=== PATIENT | male | born 1940 | race Caucasian/White ===

== ENCOUNTER → 2018-04-11 13:27 | Outpatient (CLI) | payer MEDICARE, SELFPAY ==
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
--- NOTE | 2018-04-11 13:30 | RAD_ITS ---
STUDY: SWALLOWING STUDY (MODIFIED ESOPHAGRAM WITH SPEECH THERAPY (COOKIE SWALLOW). REASON FOR EXAM: Male, 77 years old. Dysphagia. Sometimes patient feels food/fluid caught in upper chest region midline. TECHNIQUE: The examination was performed with Speech Pathology in attendance. Under fluoroscopic observation, the patient ingested thin barium, thick barium, barium pudding and barium coated cracker. FLUOROSCOPY TIME: 3:24 minutes/seconds RADIOLOGIST INVOLVEMENT: Radiologist was present and providing direct supervision. COMPARISON: None available. FINDINGS: The following was observed during swallowing of the various mixtures of barium: Thin Barium: There was no finding of aspiration identified. Minimal transient laryngeal penetration. Thick Barium: There was no finding of aspiration or laryngeal penetration. Barium Pudding: There was no finding of aspiration or laryngeal penetration. Barium Coated Cracker: There was no findings of aspiration or laryngeal penetration. Additional imaging of the thoracic esophagus shows barium pooling within the mildly dilated proximal upper thoracic esophagus with severe esophageal dysmotility without tertiary waves identified. Subsequent imaging shows dilatation upper, mid and distal esophagus with distal smooth margin tapering suggesting physiologic delayed emptying possibly due to distal esophageal narrowing or other etiology. RAD/Swallowing Function w/Video IMPRESSION: No fabienne aspiration with tailored barium swallow study. Please see Speech Pathology report same date for additional details. Severe appearing esophageal dysmotility without tertiary waves with delayed transit of the barium in the mildly dilated upper, mid and distal thoracic esophagus. If clinically indicated, esophagram is recommended for further evaluation to identify possible distal esophageal narrowing or other etiology. The swallow study findings were discussed with the patient by the speech pathologist At the conclusion of the examination. Please see speech pathology report for more information and recommendations. The procedure was performed by Durga under the direct supervision of Dr. Yates. Electronically Signed: Andres Yates, at 15:55 EDT Tel , Service support ,
== END ==
PROVIDERS: Family Provider Family Medicine; PCP Family Medicine; Referring Provider Family Medicine; Visit Provider Family Medicine
DX: R13.13 Dysphagia, pharyngeal phase (principal)
CPT/HCPCS: 74230; 92611; G8996; G8997; G8998

== ENCOUNTER 2018-04-25 11:13 | Emergency (ER) | payer MEDICARE, SELFPAY ==
[2018-04-25 11:17] VITALS: BP 166/83; PULSE 59; RESP 16; TEMP 36.6; O2SAT 98; BMI 21.4
--- NOTE | 2018-04-25 11:54 | EKG12_ITS ---
Test Reason : CP Blood Pressure : / mmHG Vent. Rate : 056 BPM Atrial Rate : 056 BPM P-R Int : 156 ms QRS Dur : 088 ms QT Int : 426 ms P-R-T Axes : 035 027 040 degrees QTc Int : 411 ms Sinus bradycardia Otherwise normal ECG Confirmed by VIRAL US ([id number]), editor index GO SALTER ([id number]) on 04/29/2018 8:49:13 AM Referred By: REFUGIO
--- NOTE | 2018-04-25 11:54 | RAD_ITS ---
STUDY: X-RAY CHEST REASON FOR EXAM: Male, 77 years old. Chest pain TECHNIQUE: Single AP portable view of the chest. COMPARISON: None. FINDINGS: The lungs are clear and expanded. There is no demonstrated pleural abnormality. Normal size heart. Normal mediastinum and marita. Normal visualized pulmonary arteries. There is atherosclerotic calcification of the aortic arch with tortuosity. There are diffuse degenerative changes of the visualized thoracic spine. Normal visualized ribs, clavicles, and shoulders. There is no demonstrated abnormality of the visualized soft tissue structures of the upper abdomen. RAD/Chest 1 View (Portable) IMPRESSION: Degenerative changes, as described above. No demonstrated acute cardiopulmonary process. Electronically Signed: Dickson Nair MD at 13:09 EDT , Service support ,
[2018-04-25 12:12] LABS: Absolute Lymphocyte Count 1.48 X10^3/ul (0.83-4.51); Absolute Neutrophil Count 2.1 X10^3/uL (2.0-7.7); Basophil# 0.01 X10^3/uL; Basophil% 0.2 % (0-1); Eosinophil# 0.09 X10^3/uL; Eosinophils% 2.1 % (0-5); Hematocrit 34.5 % (40-54); Hemoglobin 10.8 g/dl (13.0-16.5); Lymphocyte # 1.48 X10^3/ul (4.0); Lymphocyte % 34.7 % (19-41); Mean Corp Hgb Conc 31.3 g/gl (32-36); Mean Corpuscular Hgb 30.5 pg (27.0-32.0); Mean Corpuscular Volume 97.5 fL (80-94); Mean Platelet Vol. 11.3 fl (6.2-12.0); Monocyte# 0.58 X10^3/uL; Monocyte% 13.6 % (0-10); Neutrophil # 2.09 X10^3/uL (2.7-7.7); Neutrophil % 48.9 % (47-70); Platelet Count 143 K/mm3 (150-450); RBC Distribution Width CV 14.8 % (11.6-14.6); RBC Distribution Width SD 49.9 fl (35.1-43.9); Red Blood Count 3.54 M/mm3 (4.6-6.2); White Blood Count 4.3 K/mm3 (4.4-11.0)
[2018-04-25 12:13] LABS: International Normalized Ratio 1.1; Prothrombin Time (Protime)PT. 13.9 SECONDS (11.7-14.9)
[2018-04-25 12:14] LABS: Partial Thromboplast Time 30.1 Seconds (24.1-36.2)
[2018-04-25 12:15] VITALS: BP 162/84; PULSE 52; RESP 19; O2SAT 99
[2018-04-25] MEDS: Aspirin 81 MG TAB.CHEW 324 MG PO (12:24)
[2018-04-25 12:26] LABS: Anion Gap 6 (5-15); BUN 25 mg/dL (7-18); Calcium,Total 9.4 mg/dL (8.5-10.1); Chloride 109 mmol/L (98-107); Creatinine, Serum 1.19 mg/dL (0.70-1.30); EST Glomerular Filtration Rate 63 mL/min (>60); Est Glom Filt Rate - Afr Amer 76 mL/min (>60); Estimated Creatinine Clearance 46.85 ml/min; Glucose 80 mg/dL (74-106); POSITIVE COUNT NO; POSITIVE DIFFERENTIAL NO; POSITIVE MORPHOLOGY NO; Sodium Level 141 mmol/L (136-145)
[2018-04-25 12:40] LABS: D-Dimer Quantitative (DVT/PE) 6.14 FEU/ug/m (0.27-0.49)
--- NOTE | 2018-04-25 12:41 | ED.RN ---
Critical d-dimer of 6.[address] Olmedo notified. No new orders received.
--- NOTE | 2018-04-25 12:50 | CT_ITS ---
STUDY: CTA CHEST REASON FOR EXAM: Male, 77 years old. Chest pain. Abdominal aortic aneurysm repair RADIATION DOSAGE (If Supplied By Facility): CTDIvol = ( 8.59 ) mGy, DLP = ( 216.13 ) mGycm TECHNIQUE: The examination was performed with the intravenous administration of 100 ml of Isovue 370 contrast material. Post-processing of the angiographic images was performed, with multiplanar reformation and 3D reconstruction. Individualized dose optimization techniques were used for this CT. COMPARISON: Chest x-ray FINDINGS: Normal enhancement of the main pulmonary artery and right and left pulmonary arteries. Normal enhancement of the bilateral peripheral pulmonary arteries. There is no demonstrated pulmonary embolism. There is atherosclerotic calcification of the aortic arch with tortuosity. There is no demonstrated aortic dissection. There are calcifications of the coronary arteries. Normal mediastinum. Normal hilar regions. Normal visualized trachea and bronchi. The lungs are well expanded. There is emphysema of the lungs. There is right upper lung granuloma. Normal pleura. Normal chest wall structures. There are degenerative changes of thoracic spine. There are cysts in the liver and right kidney. CT/CTA Chest W/WO Contrast IMPRESSION: CTA chest examination, without a demonstrated pulmonary embolism or arterial dissection. Electronically Signed: Dickson Nair MD at 14:00 EDT , Service support ,
[2018-04-25 13:00] VITALS: BP 161/77; PULSE 57; RESP 19; O2SAT 97
[2018-04-25 15:00] VITALS: BP 177/83; PULSE 56; RESP 27; O2SAT 98
[2018-04-25] MEDS: Mag Hydrox/Al Hydrox/Simeth 30 ML UDC PO (15:13)
--- NOTE | 2018-04-25 15:31 | ED.VISSUMM ---
- ER Visit Summary Date of Service: 04/25/18 Chief Complaint: Chest pain History of Present Illness: The patient is a 77 M who presents with chest pain that began today. Patient states the pain began while he was sleeping. Patient describes the pain is dull and aching. Patient states the pain is over the substernal and lateral parasternal areas. Patient states nothing seems to make the pain better or worse. Patient denies any nausea or vomiting. Patient denies any diaphoresis. Patient denies any shortness of breath. Patient denies any other symptoms. Patient states he has been diagnosed with what sounds like an esophageal stricture and is scheduled to do have an endoscopy this week. Patient states he was eating some meat that he chopped up very finely. Patient states he was able to swallow it without difficulty. However, since that time he has been having some of this intermittent chest pain. Patient also had a recent repair of a abdominal aortic aneurysm approximately 6 weeks ago. Patient denies any abdominal pain. Patient denies any pain in his upper back. Physical Examination: Vital signs are stable. Patient is afebrile. Patient is in no acute distress. Oral mucosa is pink and moist. Neck is supple. There is no JVD noted. Heart was regular rate and rhythm. Lungs are clear and equal bilateral. There is good respiratory effort noted. Abdomen is soft and nontender. Cranial nerves II through XII are intact. There are no focal motor or sensory deficits noted. The remaining physical exam is within normal limits. Test Results: Chest x-ray was obtained. There is no acute cardiopulmonary process. CBC, metabolic profile, troponin were obtained and were all essentially within normal limits. D-dimer was obtained and was elevated. CTA of the chest was obtained. There is no evidence of pulmonary embolism or aortic dissection. Emergency Department Course and Treatment: She was given aspirin and sublingual nitroglycerin initially. On reevaluation patient was having intermittent pain in his chest. Patient was given a GI cocktail. Patient felt better after this. Patient was instructed to follow-up with his primary care physician and follow-up for his endoscopy as scheduled. Patient understood and was agreeable with the plan. All questions were answered. Disposition: Discharge home Impression: Chest pain This note was generated with [employer] dictation software. It may contain incorrect words, spelling, and punctuation that were not noted in review of the chart prior to signing ED Disposition - Plan for ED Patient: Disposition: Home or Assisted Living Chief Complaint: Chest Pain Diagnosis: Chest pain Instructions: ED Chest Pain Atypical Unkn Cause Referrals: Sanjay Espinal MD [Primary Care Provider] -
[2018-04-25 15:55] VITALS: BP 157/86; PULSE 53; RESP 12; O2SAT 53
== END 2018-04-25 15:55 | disposition home or self-care (01) ==
PROVIDERS: Emergency Provider Emergency Medicine; Family Provider Family Medicine; PCP Family Medicine
DX: R07.9 Chest pain, unspecified (principal); M54.9 Dorsalgia, unspecified; R74.8 Abnormal levels of other serum enzymes; I10 Essential (primary) hypertension; Z79.82 Long term (current) use of aspirin; Z79.899 Other long term (current) drug therapy; Z98.890 Other specified postprocedural states
CPT/HCPCS: 71045; 71275; 80048; 84484; 85025; 85379; 85610; 85730; 93005; 99285; Q9967

== ENCOUNTER → 2018-04-28 09:53 | Outpatient (CLI) | payer MEDICARE, SELFPAY ==
--- NOTE | 2018-04-28 09:54 | RAD_ITS ---
STUDY: X-RAY - ESOPHAGUS (BARIUM SWALLOW) WITH FLUOROSCOPY REASON FOR EXAM: Male, 77 years old. Episodes of choking and dysphagia for solids. TECHNIQUE: 15 view(s) of the esophagus were obtained following swallowing of barium. FLUOROSCOPY TIME (if supplied): (0:30) minutes/seconds COMPARISON: None. FINDINGS: There is no demonstrated esophageal foreign body. There is no demonstrated stricture or mucosal abnormality. Normal gastroesophageal junction, without a demonstrated hiatal hernia. The patient ingested a 12 mm tablet of barium. The tablet is trapped at the gastroesophageal junction. There is atherosclerotic tortuosity of the aortic arch and descending thoracic aorta. Normal visualized pulmonary parenchyma. There are diffuse degenerative changes of the visualized thoracic spine. RAD/Esophagus Only IMPRESSION: The patient ingested a 12 mm tablet of barium. The tablet is trapped at the gastroesophageal junction. Electronically Signed: Telly Diaz MD at 15:55 EDT Tel [phone], Service support ,
== END ==
PROVIDERS: Family Provider Family Medicine; PCP Family Medicine; Referring Provider Internal Medicine Cardiovascular Disease; Visit Provider Internal Medicine Cardiovascular Disease
DX: Z98.890 Other specified postprocedural states (principal)
CPT/HCPCS: 74220

== ENCOUNTER → 2018-05-12 13:45 | Outpatient (CLI) | payer MEDICARE, SELFPAY ==
--- NOTE | 2018-05-12 13:45 | ESO_PTH ---
PATIENT: RUSS VAZ LOC: [facility] U#:[id number] AGE/SX: 84/M ROOM: RE05/12/[address]: Dr. Pepe Young MD : [id number] BED: DIS: SPEC #: [id number] RECD: 05/12/18 15:17 STATUS: COLETTE REAnibal #: [id number] JW: 05/12/18 13:[address]: Pepe Young DEPT: SURGICAL PATHOLOGY RECD BY: Durga Kumar ENTERED: 05/13/18 11:03 KI TYPE: BRENDAN MELLO DR: Dr. Sanjay Espinal MD [facility] Tissues: Esophagus, NOS Procedures: Surgery Specimen Level IV HEADER OPERATION: EGD with biopsy PRE-OP DIAGNOSIS: Dysphagia TISSUE SUBMITTED: Esophagus biopsy rule out EE MICROSCOPIC DIAGNOSIS Esophagus, biopsy: Fragments of squamous epithelium with mild chronic inflammation. See Comment. ELENITA:ki 05/14/18 COMMENT Increased number of eosinophils consistent with eosinophilic esophagitis are not seen. MICROSCOPIC DESCRIPTION Slides are reviewed. GROSS DESCRIPTION Received is one container labeled with the patient name and designated esophagus. The specimen consists of multiple irregular fragments of light ferguson soft tissue that in aggregate measure 0.6 x 0.4 x 0.1 cm. The specimen is totally submitted in one cassette. / SJ:sp 05/13/18 TC: 3 [facility]: [id number]
== END ==
PROVIDERS: Family Provider Family Medicine; PCP Family Medicine; Referring Provider Internal Medicine Gastroenterology; Visit Provider Internal Medicine Gastroenterology
DX: R13.10 Dysphagia, unspecified (principal)
CPT/HCPCS: 88305

== ENCOUNTER 2019-10-30 14:45 | Inpatient (IN) | payer MEDICARE, OTHER, SELFPAY ==
[2018-09-16 15:03] VITALS: BMI 23.4
[2019-10-30] VITALS (13 sets, daily range): BP systolic 143–193; BP diastolic 49–83; PULSE 56–68; RESP 16–18; TEMP 36.4–36.7; O2SAT 94–99; BMI 25.4; BMI 24.7
--- NOTE | 2019-10-30 14:55 | EKG12_ITS ---
Test Reason : PALPS Blood Pressure : / mmHG Vent. Rate : 059 BPM Atrial Rate : 059 BPM P-R Int : 158 ms QRS Dur : 090 ms QT Int : 424 ms P-R-T Axes : 001 019 026 degrees QTc Int : 419 ms Sinus bradycardia Otherwise normal ECG No previous ECGs available Confirmed by CHAO BOSE, ALLY ([id number]), editorial director GO SALTER ([id number]) on 11/11/2019 10:28:00 AM Referred By: TODD Confirmed By:ALLY GUIDRY MD
--- NOTE | 2019-10-30 15:15 | RAD_ITS ---
STUDY: X-RAY CHEST REASON FOR EXAM: Male, 79 years old. PALPITATIONS, HX OF A-FIB, DENIES CHEST PAIN, C/O SOB WITH EXERTION FOR A COUPLE OF DAYS. TECHNIQUE: Single AP portable view of the chest. COMPARISON: Comparison is made with prior study April 25, 2018. FINDINGS: EKG electrodes are seen. The lungs are clear and expanded. There is no demonstrated pleural abnormality. Normal size heart. Normal mediastinum and marita. Normal visualized pulmonary arteries. There is atherosclerotic calcification of the aortic arch with tortuosity. There are diffuse degenerative changes of the visualized thoracic spine. Normal visualized ribs, clavicles, and shoulders. There is no demonstrated abnormality of the visualized soft tissue structures of the upper abdomen. RAD/Chest 1 View (Portable) IMPRESSION: No acute abnormality is seen. Electronically Signed: Telly Diaz, at 15:38 EDT , Service support ,
[2019-10-30 15:16] LABS: Absolute Lymphocyte Count 1.39 X10^3/uL (0.83-4.51); Absolute Neutrophil Count 1.5 X10^3/uL (2.0-7.7); Basophil# 0.01 X10^3/uL; Basophil% 0.3 % (0-1); Eosinophil# 0.03 X10^3/uL; Eosinophils% 0.9 % (0-5); Hematocrit 24.4 % (40-54); Lymphocyte # 1.39 X10^3/ul (4.0); Lymphocyte % 40.5 % (19-41); Mean Corp Hgb Conc 28.7 g/dL (32-36); Mean Corpuscular Hgb 26.3 pg (27.0-32.0); Mean Corpuscular Volume 91.7 fL (80-94); Mean Platelet Vol. 10.8 fl (6.2-12.0); Monocyte# 0.48 X10^3/uL; NRBC Flagged by Analyzer 0 % (0-5); Neutrophil # 1.49 X10^3/uL (2.7-7.7); Neutrophil % 43.4 % (47-70); Platelet Count 189 K/mm3 (150-450); RBC Distribution Width CV 18.9 % (11.6-14.6); RBC Distribution Width SD 61.7 fl (35.1-43.9); Red Blood Count 2.66 M/mm3 (4.6-6.2); White Blood Count 3.4 K/mm3 (4.4-11.0)
--- NOTE | 2019-10-30 15:17 | ED.DCSUM_ITS ---
History of Present Illness Chief Complaint: Palpitations Informant: Patient Onset: Days Timing: Intermittent Narrative: Patient is an 79-year-old male with history of ruptured AAA repaired at [facility] complicated by acute kidney injury requiring short-term dialysis, proximal atrial fibrillation, not on any anticoagulation but does take 81 mg aspirin daily, status post ablation who is presenting with palpitations in his chest. Patient states over the past few days has had intermittent episodes where he feels like his cell phone is vibrating in his chest. He states the last anywhere between a couple minutes to a couple hours. He currently does not have any symptoms. When he gets this he also has some radiation of discomfort down his left arm. He does note that he was more short of breath when he went to take the garbage cans inside yesterday which was abnormal for him. Edema of his feet but states that is been stable for the past 2 years. No change in sleep habits. Denies any orthopnea. Denies any associated diaphoresis or nausea. Dates he has had a cardiac catheterization when he had his aneurysm and multiple stress test. He is had multiple episodes of these palpitations in the past. Patient denies any black or bloody stools. He states he does get hemorrhoidal bleeding and blood with wiping for the past 2 years. This is unchanged. Past Medical History - Allergies and Home Meds Allergies/Adverse Reactions: Allergies No Known Allergies Allergy (Verified 03/31/19 12:57) Primary Care Physician: Sanjay Espinal MD [Primary Care Provider] - Past Medical History: - - History of ruptured AAA, proximal atrial fibrillation Surgical History: - - Cardiac ablation, AAA repair, patient underwent appendectomy in the 1970s. He underwent disc fixation of the cervical spine for broken neck at the age of 14. Lives: With Family Smoking Status: Former smoker Alcohol: Occasional - No more than 2 beers a day - Family History Maternal Family History: Family History (Last Reviewed 03/31/19 @ 12:59 by Mandy Ogden) Mother Cancer Family History: Reports: - - Patient's father at the age of 80 with a history of alcoholism, black lung due to many years of call mining. Patient's mother at the age of 89 with a history of abdominal cancer. Review of Systems General: Denies: Chills, Fever, Sweats Eyes: Denies: Visual changes - bilaterally, Diplopia ENT: Denies: Rhinorrhea, Sore throat Cardiovascular: Reports: Palpitations, Heart racing. Denies: Chest pain Respiratory: Reports: Dyspnea on exertion. Denies: Dyspnea, Cough Gastrointestinal: Denies: Abdominal pain, Nausea, Vomiting, Diarrhea, Melena, Hematochezia Genitourinary: Denies: Dysuria, Hematuria, Frequency Musculoskeletal: Denies: Back pain, Extremity Pain Skin: Denies: Rash, Wounds Neurological: Denies: Headache, Weakness, Numbness Physical Exam Vital Signs/Narrative: Vital Signs Temp Pulse Resp BP Pulse Ox 10/30/19 14:46 97.6 F L 68 16 193/83 H 98 Inital Vital Signs reviewed: Yes General: Well nourished, Well developed, No Acute Distress Head: Normocephalic, Atraumatic Eyes: Perrl, EOMI ENT: Moist mucous membranes, No rhinorrhea Neck: Supple, Nontender Cardiovascular: Regular rhythm, No murmurs, Bradycardia Respiratory: No distress, CTA bilaterally, Chest nontender Abdomen: Soft, Nontender, Nondistended, Normal bowel sounds : - - Rectal exam shows 1 hemorrhoid, non-thrombosed and nonbleeding. Scant stool obtained that is light brown in color. No obvious melena. Guaiac positive. Back: Nontender, Normal Inspection Extremities: Nontender, No edema Skin: Normal color, No rash Neurological: Alert, Oriented x3, Cranial nerves II-XII grossly intact, Normal Strength, Normal Sensation Psychological: Normal affect, Normal Mood Diagnostic/Tx/Re-eval Chest X-Ray - ED: 1 View, Read by ED Physician, Read by Radiologist, No Acute Disease Clinical Impression(s) from Imaging Studies Chest X-Ray 10/30/19 15:15 IMPRESSION: No acute abnormality is seen. Electronically Signed: Telly Diaz, at 15:38 EDT , Service support , Laboratory Data 10/30/19 10/30/19 10/30/19 15:08 15:08 15:08 WBC 3.4 L RBC 2.66 L Hgb 7.0 L Hct 24.4 L MCV 91.7 MCH 26.3 L MCHC 28.7 L RDW Std Deviation 61.7 H RDW Coeff of Radha 18.9 H Plt Count 189 MPV 10.8 Immature Gran % (Auto) 0.900 Neut % (Auto) 43.4 L Lymph % (Auto) 40.5 [place] % (Auto) 14.0 H Eos % (Auto) 0.9 Baso % (Auto) 0.3 Absolute Neuts (auto) 1.5 L Absolute Lymphs (auto) 1.39 Nucleated RBC % 0 PT 13.7 INR 1.1 Sodium 143 Potassium 4.4 Chloride 113 H Carbon Dioxide 25.0 Anion Gap 5 BUN 23 H Creatinine 1.38 H Estim Creat Clear Calc 40.62 Est GFR (MDRD) Af Amer 64 Est GFR (MDRD) Non-Af 53 L BUN/Creatinine Ratio 16.7 Glucose 97 Calcium 9.0 Magnesium 2.3 Troponin I < 0.015 B-Natriuretic Peptide TSH 4.24 H Crossmatch 10/30/19 10/30/19 15:08 16:25 WBC RBC Hgb Hct MCV MCH MCHC RDW Std Deviation RDW Coeff of Radha Plt Count MPV Immature Gran % (Auto) Neut % (Auto) Lymph % (Auto) [place] % (Auto) Eos % (Auto) Baso % (Auto) Absolute Neuts (auto) Absolute Lymphs (auto) Nucleated RBC % PT INR Sodium Potassium Chloride Carbon Dioxide Anion Gap BUN Creatinine Estim Creat Clear Calc Est GFR (MDRD) Af Amer Est GFR (MDRD) Non-Af BUN/Creatinine Ratio Glucose Calcium Magnesium Troponin I B-Natriuretic Peptide 231.5 H TSH Crossmatch See Detail - Rhythm Strip Rhythm Strip: Sinus bradycardia Rate: 59 Ectopy: None - EKG Initial EKG Interpretation: Sinus Bradycardia, - - Has bradycardia at a rate of 59 Normal intervals Normal axis Normal ST segments No change compared to prior EKG on 04/25/2018 - Medical Decision Making Patient is evaluated for 1 day of dyspnea on exertion as well as a few days of intermittent palpitations. He is currently asymptomatic. His EKG is remarkable only for sinus bradycardia. Patient is not have any arrhythmia was in the emergency room. Work-up is significant for anemia with a hemoglobin of 7.0. Called his PCP who states in October his hemoglobin was 11.1. There is no obvious source of bleeding however patient is occult positive with his stool. Patient has a mild leukopenia as well and I am not sure if this is related. Patient will be admitted for blood transfusion and further evaluation of this anemia. I suspect the anemia is the cause of his dyspnea on exertion and possible pal pitations. Discussed the case with Dr. Duran who is willing to scope the patient. Patient is admitted to medicine service. Patient is hemodynamically stable and I believe stable for the general medical floor at time of disposition. ED Disposition - Plan for ED Patient: Disposition: Acute Care Hospital [facility] Diagnosis: Anemia, Occult blood positive stool, Palpitation, Leukopenia Referrals: Sanjay Espinal MD [Primary Care Provider] -
[2019-10-30 15:36] LABS: BNP,B-Type NATRIURETIC PEPTIDE 231.5 pg/mL (0-100); International Normalized Ratio 1.1; Prothrombin Time (Protime)PT. 13.7 SECONDS (11.7-14.9)
[2019-10-30 15:39] LABS: Anion Gap 5 (5-15); BUN 23 mg/dL (7-18); BUN/Creat Ratio 16.7 RATIO (10-20); Chloride 113 mmol/L (98-107); Creatinine, Serum 1.38 mg/dL (0.70-1.30); EST Glomerular Filtration Rate 53 mL/min (>60); Est Glom Filt Rate - Afr Amer 64 mL/min (>60); Estimated Creatinine Clearance 40.62 ml/min; Glucose 97 mg/dL (74-106); Magnesium 2.3 mg/dL (1.6-2.6); Potassium 4.4 mmol/L (3.5-5.1); Sodium Level 143 mmol/L (136-145); Thyroid Stim Hormone (TSH) 4.24 uIU/mL (0.358-3.74)
--- NOTE | 2019-10-30 18:18 | HP.PCM_ITS ---
Problem List (1) Palpitation Status: Acute History of Present Illness Date of Admission: 10/30/19 Chief Complaint: Palpitation, abnormal chest discomfort The patient is a 79 year old M who was seen in the emergency room at [facility] with a chief complaint of chest discomfort which he described as a vibration in the middle of his chest, he did not complain of any diaphoresis, shortness of breath, or radiation of the discomfort into his neck or arm. Work-up in the emergency room included labs which showed a creatinine of 1.38, BUN of 23, white blood cell count of 3.4, and hemoglobin of 7. Patient's chest x-ray was unremarkable, patient's beta natruretic peptide was slightly elevated at 231. TSH was 4.24. EKG showed a sinus bradycardia without evidence of ischemic changes. Patient was admitted to [place] [address] for acute anemia, he will receive 2 units of packed red blood cells, he will be seen in consultation by general surgery and he will be placed on telemetry to monitor for arrhythmias. Patient will undergo an EGD tomorrow morning by general surgery. Past Medical History Past Medical History (Chronic Problems): Chronic Problems (Last Reviewed 03/31/19 @ 12:59 by Mandy Ogden) Essential (primary) hypertension (Chronic) Paroxysmal atrial fibrillation (Chronic) Hyperlipidemia (Chronic) Medical History: Medical History (Last Reviewed 03/31/19 @ 12:59 by Mandy Ogden) Essential (primary) hypertension (Chronic) I10 Paroxysmal atrial fibrillation (Chronic) I48.0 Ruptured abdominal aortic aneurysm (AAA) (Resolved) I71.3 Infrarenal AAA Hyperlipidemia (Chronic) E78.5 Anemia D64.9 Bowel and bladder incontinence R32, R15.9 GI bleed K92.2 Spinal stenosis of lumbar region M48.061 Acute kidney injury N17.9 Thrombocytopenia D69.6 Allergies No Known Allergies Allergy (Verified 03/31/19 12:57) Home Medications: Ambulatory Orders Medication Instructions Recorded Simvastatin 40 mg PO DAILY 09/22/16 aspirin 81 mg tablet,delayed 81 mg PO DAILY 04/16/18 release metoprolol tartrate 25 mg tablet 25 mg PO BID #60 tab 04/16/18 pantoprazole 40 mg tablet,delayed 40 mg PO DAILY 04/16/18 release Surgical History: Surgical History (Last Reviewed 03/31/19 @ 12:59 by Mandy Ogden) History of AAA (abdominal aortic aneurysm) repair (Resolved) Onset Date: 03/04/18 Z98.890 AAA infra-renal repair using 20 x 10 mm x 40 cm Hemashield Vascular Graft 03/04/18 History of radiofrequency ablation procedure for cardiac arrhythmia Z98.890 Surgical History: - - Cardiac ablation, AAA repair, patient underwent appendectomy in the 1970s. He underwent disc fixation of the cervical spine for broken neck at the age of 14. Psychiatric History: No pertinent psych hx Lives: With Family Smoking Status: Former smoker Tobacco Use: Non-smoker Alcohol: Occasional - No more than 2 beers a day Drugs: None - *Family History Maternal Family History: Family History (Last Reviewed 03/31/19 @ 12:59 by Mandy Ogden) Mother Cancer History Items: - - Patient's father at the age of 80 with a history of alcoholism, black lung due to many years of call mining. Patient's mother at the age of 89 with a history of abdominal cancer. Paternal Family History: Family History (Last Reviewed 03/31/19 @ 12:59 by Mandy Ogden) Mother Cancer History Items: - - Alcoholism Review of Systems Constitutional: Denies: Anorexia, Chills, Fever, Night Sweats, Malaise, Weakness, Weight Change, Fatigue Eyes: Denies: Cataracts, Conjunctivae Inflammation, Double vision, Drainage HEENT: Denies: Dysphasia, Ear Pain, Eye Pain, Hearing Changes, Nasal bleeding, Nasal Congestion, Post Nasal Drip Cardiovascular: Reports: Palpitations. Denies: Chest Pain, Claudication, Chest Pressure, Chest Tightness, Edema, Heaviness, Orthopnea, Paroxysmal Noc. Dyspnea, Syncope Respiratory: Denies: Cough, Hemoptysis, Pleuritic Pain, Shortness of Breath, Shortness of breath at rest, Shortness of breath upon exertion, Sputum production Gastrointestinal: Denies: Abdominal Pain, Constipation, Diarrhea, Hematemesis, Hematochezia, Nausea, Melena, Vomiting Genitourinary: Denies: Dysuria, Frequency, Hematuria, Hesitancy, Urgency Musculoskeletal: Denies: Back Pain, Foot Pain, Hand Pain, Joint Pain, Joint stiffness, Joint swelling, Joint Tenderness, Leg Pain Skin: Denies: Dryness, Pruritis, Rash Neurological: Denies: Blurred vision, Double vision, Slurred speech, Difficulty swallowing, Focal weakness, Numbness, Tingling Psychiatric: Denies: Anxiety, Depression, Homicidal Ideations, Suicidal Ideations Endocrine: Denies: Change in Body Habitus, Heat/ Cold Intolerance, Polydipsia, Polyuria Hematologic/ Lymphatic: Denies: Adenopathy, Anemia, Easy Bruising, Easy Bleeding, Petechiae, Purpura VTE Information - Inpt Only VTE Present on Admission: No VTE Mechan Device Prophylaxis: SCD's VTE Pharm Prophylaxis ordered?: No Reason prophylaxis not ordered:: Medical Contraindication - Acute anemia Patient Problems: Active and Suspected Problems (Last Reviewed 03/31/19 @ 12:59 by Mandy Ogden) Anemia (Acute) Occult blood positive stool (Acute) Palpitation (Acute) Leukopenia (Acute) - Physical Exam Vitals/I&O's: Vital Signs Temp Pulse Resp BP Pulse Ox 98.1 F 56 L 17 161/49 H 99 10/30/19 17:11 10/30/19 17:11 10/30/19 17:11 10/30/19 17:11 10/30/19 17:11 Oxygen Delivery Method Room Air Weight: 74 kg Body Mass Index (BMI) 24.7 General: Alert, Oriented x3, Cooperative, No apparent distress, Well developed HEENT: Atraumatic, PERRLA, EOMI, Normocephalic Oral: Moist Mucosa Neck: Supple, No JVD, Negative Carotid Bruits, Trachea Midline Lungs: Clear to auscultation, Normal air movement, No rhonchi, No wheeze, No rales Cardiovascular: Regular rate, Normal S1, Normal S2, No murmurs, PMI Normal, No rub noted, - - Patient has ectopic activity noted on auscultation Abdomen: Bowel Sounds Present, Soft, Non Tender, Non-Distended, No hernias noted Extremities: No clubbing, No cyanosis, No edema, Capillary Refill Less than 3 Seconds Skin: No rashes, No breakdown Musculoskeletal: No Tenderness to Palpation of Joints or Extremities, No Muscle Wasting Neurological: Cranial nerves II-XII grossly intact, Neuro grossly intact, Sensory exam intact to light touch and pain, Coordination normal Psych/Mental Status: Normal Affect, Appropriate, Alert and oriented to time, place, person, mood and affect Microbiology Past 72 Hours 10/30/19 16:19 Stool Stool Occult Blood (STUART) - Final Occult Blood Positive Laboratory Results 10/30/19 15:08: WBC 3.4 L, RBC 2.66 L, Hgb 7.0 L, Hct 24.4 L, MCV 91.7, MCH 26.3 L, MCHC 28.7 L, RDW Std Deviation 61.7 H, RDW Coeff of Radha 18.9 H, Plt Count 189, MPV 10.8, Immature Gran % (Auto) 0.900, Neut % (Auto) 43.4 L, Lymph % (Auto) 40.5, [place] % (Auto) 14.0 H, Eos % (Auto) 0.9, Baso % (Auto) 0.3, Absolute Neuts (auto) 1.5 L, Absolute Lymphs (auto) 1.39, Nucleated RBC % 0 10/30/19 15:08: Sodium 143, Potassium 4.4, Chloride 113 H, Carbon Dioxide 25.0, Anion Gap 5, BUN 23 H, Creatinine 1.38 H, Estim Creat Clear Calc 40.62, Est GFR (MDRD) Af Amer 64, Est GFR (MDRD) Non-Af 53 L, BUN/Creatinine Ratio 16.7, Glucose 97, Calcium 9.0, Magnesium 2.3, Troponin I < 0.015, TSH 4.24 H 10/30/19 15:08: PT 13.7, INR 1.1 10/30/19 15:08: B-Natriuretic Peptide 231.5 H 10/30/19 16:25: Blood Type A NEGATIVE, Antibody Screen NEGATIVE, Crossmatch See Detail Current Medications Pantoprazole Sodium 40 mg/ (Sodium Chloride) 110 mls @ 330 mls/hr IV Q12 CELINA Sodium Chloride () 250 mls @ 15 mls/hr IV .[id number] PRN PRN Reason: Saline Flush Sodium Chloride () 250 mls @ 15 mls/hr IV .[id number] PRN PRN Reason: Additional IVPB Infusion Metoprolol Tartrate (Lopressor (Beta Aleisha)) 25 mg PO BID CELINA Sodium Chloride () 10 - 40 ml IV UD PRN PRN Reason: SALINE FLUSH Assessment/Plan All Active Problems (Last Reviewed 03/31/19 @ 12:59 by Mandy Ogden) Anemia (Acute) Occult blood positive stool (Acute) Palpitation (Acute) Leukopenia (Acute) Ruptured abdominal aortic aneurysm (AAA) (Resolved) History of AAA (abdominal aortic aneurysm) repair (Resolved 03/04/18) Abscess (Resolved) #1 acute anemia-etiology unclear, patient was admitted to [facility], he will receive 2 units of packed red blood cells, he will be monitored on telemetry, he will be seen in consultation by general surgery and have an EGD performed tomorrow. I will place the patient on IV Protonix. I do not have a recent CBC on this facility to compare with the present CBC. Patient states he was placed on iron in the past by his family physician-he does not know why, he is no longer taking this iron. I will obtain a serum iron and TIBC while the patient is here in the hospital. #2 palpitations-patient has a history of paroxysmal atrial fib, patient will be placed on a monitor #3 essential hypertension #4 hyperlipidemia-I will hold the patient's statin while he is hospitalized, he can resume this medication when he goes home #5 leukopenia-this appears to be chronic in nature in reviewing the patient's previous CBCs. #6 guaiac positive stool-etiology unclear at this point, again patient will undergo an EGD tomorrow, he may eventually need a colonoscopy performed, I discussed this with him-he does not remember the last time he had colonoscopy. Inpatient E&M: 96282 Init Hosp L3
[2019-10-30 18:47] LABS: Iron 15 ug/dL (65-175); Iron Binding Capacity,Total 362 ug/dL (250-450); PERCENT IRON SATURATION 4.1 % (15.0-55.0)
[2019-10-30] MEDS: Metoprolol Tartrate 25 MG Tablet PO (21:47)
[2019-10-30] MEDS: 0.9% Saline Lock 10 ML Syringe IV (21:51)
[2019-10-31] VITALS (18 sets, daily range): BP systolic 124–165; BP diastolic 54–84; PULSE 53–66; RESP 16–18; TEMP 36.4–37.1; O2SAT 94–98
[2019-10-31 06:03] LABS: Absolute Lymphocyte Count 1.36 X10^3/uL (0.83-4.51); Basophil# 0.01 X10^3/uL; Basophil% 0.3 % (0-1); Eosinophil# 0.04 X10^3/uL; Eosinophils% 1.4 % (0-5); Hematocrit 26.6 % (40-54); Hemoglobin 8.1 g/dL (13.0-16.5); Lymphocyte # 1.36 X10^3/ul (4.0); Lymphocyte % 46.3 % (19-41); Mean Corp Hgb Conc 30.5 g/dL (32-36); Mean Corpuscular Hgb 27.4 pg (27.0-32.0); Mean Corpuscular Volume 89.9 fL (80-94); Mean Platelet Vol. 11.6 fl (6.2-12.0); Monocyte# 0.55 X10^3/uL; Monocyte% 18.7 % (0-10); NRBC Flagged by Analyzer 0 % (0-5); Neutrophil # 0.97 X10^3/uL (2.7-7.7); POSITIVE DIFFERENTIAL YES; Platelet Count 177 K/mm3 (150-450); RBC Distribution Width CV 18.1 % (11.6-14.6); RBC Distribution Width SD 57.9 fl (35.1-43.9); Red Blood Count 2.96 M/mm3 (4.6-6.2); White Blood Count 2.9 K/mm3 (4.4-11.0)
[2019-10-31] MEDS: 0.9% Saline Lock 10 ML Syringe IV ×2 (06:04→23:15)
[2019-10-31 06:39] LABS: Differential Indicated SCAN CRITERIA MET
[2019-10-31 06:41] LABS: Anisocytosis 2+; Hypochromasia 2+; Platelet Estimate ADEQUATE (ADEQ); Polychromasia RARE
[2019-10-31 08:35] LABS: Anion Gap 5 (5-15); BUN 19 mg/dL (7-18); BUN/Creat Ratio 18.8 RATIO (10-20); Calcium,Total 8.6 mg/dL (8.5-10.1); Chloride 112 mmol/L (98-107); Creatinine, Serum 1.01 mg/dL (0.70-1.30); EST Glomerular Filtration Rate 75 mL/min (>60); Est Glom Filt Rate - Afr Amer 91 mL/min (>60); Ferritin 12 ng/mL (26-388); Glucose 81 mg/dL (74-106); Potassium 3.9 mmol/L (3.5-5.1); Sodium Level 142 mmol/L (136-145)
--- NOTE | 2019-10-31 09:11 | PN_ITS ---
Patient Problems: Active and Suspected Problems (Last Reviewed 03/31/19 @ 12:59 by Mandy Ogden) Anemia (Acute) Occult blood positive stool (Acute) Palpitation (Acute) Leukopenia (Acute) Subjective: Patient seen and examined. He has no complaints and feels well. He does admit to seeing blood on wiping himself. He had 2 units of PRBCs yesterday, and Hb today is 8.1. Review of systems otherwise negative. He does say he has had a colonoscopy in the past, and says the findings were negative. He had and EGD in the past, and says it was also fine. He says he had problems with swallowing in the past. Vitals/I&O's: Vital Signs Temp Pulse Resp BP Pulse Ox 98.0 F 53 L 18 149/72 H 98 10/31/19 08:20 10/31/19 08:20 10/31/19 08:20 10/31/19 08:20 10/31/19 08:20 Oxygen Delivery Method Room Air Weight: 163 lb 2.273 oz Body Mass Index (BMI) 24.7 Intake and Output for Last 24 Hours 10/29/19 10/30/19 10/31/19 23:59 23:59 23:59 Intake Total 535 / 635 450 / 450 Balance 535 / 635 450 / 450 General: Alert, Oriented x3, Cooperative, No apparent distress HEENT: Atraumatic, PERRLA, EOMI, Normocephalic Oral: Moist Mucosa Neck: Supple, No JVD, Negative Carotid Bruits, Negative Hepatojugular Reflux, No Nodes Lungs: Clear to auscultation, Normal air movement, No rhonchi, No wheeze Cardiovascular: Regular rate, Regular Rhythm, Normal S1, Normal S2, No murmurs Abdomen: Bowel Sounds Present Extremities: No clubbing, No cyanosis, No edema, Capillary Refill Less than 3 Seconds Skin: No rashes, No breakdown Musculoskeletal: No Tenderness to Palpation of Joints or Extremities Lymphatic: No Cervical, Supraclavicular, or Inguinal Adenopathy Neurological: Cranial nerves II-XII grossly intact, Neuro grossly intact, Motor Exam 5/5 strength throughout Psych/Mental Status: Normal Affect, Appropriate, Alert and oriented to time, place, person, mood and affect Microbiology Past 72 Hours 10/30/19 16:19 Stool Stool Occult Blood (STUART) - Final Occult Blood Positive Laboratory Results 10/30/19 15:05: Iron 15 L, TIBC 362, Iron Saturation 4.1 L 10/30/19 15:08: WBC 3.4 L, RBC 2.66 L, Hgb 7.0 L, Hct 24.4 L, MCV 91.7, MCH 26.3 L, MCHC 28.7 L, RDW Std Deviation 61.7 H, RDW Coeff of Radha 18.9 H, Plt Count 189, MPV 10.8, Immature Gran % (Auto) 0.900, Neut % (Auto) 43.4 L, Lymph % (Auto) 40.5, [place] % (Auto) 14.0 H, Eos % (Auto) 0.9, Baso % (Auto) 0.3, Absolute Neuts (auto) 1.5 L, Absolute Lymphs (auto) 1.39, Nucleated RBC % 0 10/30/19 15:08: Sodium 143, Potassium 4.4, Chloride 113 H, Carbon Dioxide 25.0, Anion Gap 5, BUN 23 H, Creatinine 1.38 H, Estim Creat Clear Calc 40.62, Est GFR (MDRD) Af Amer 64, Est GFR (MDRD) Non-Af 53 L, BUN/Creatinine Ratio 16.7, Glucose 97, Calcium 9.0, Magnesium 2.3, Troponin I < 0.015, TSH 4.24 H 10/30/19 15:08: PT 13.7, INR 1.1 10/30/19 15:08: B-Natriuretic Peptide 231.5 H 10/30/19 16:25: Blood Type A NEGATIVE, Antibody Screen NEGATIVE, Crossmatch See Detail 10/31/19 05:05: WBC 2.9 L, RBC 2.96 L, Hgb 8.1 L, Hct 26.6 L, MCV 89.9, MCH 27.4, MCHC 30.5 L D, RDW Std Deviation 57.9 H, RDW Coeff of Radha 18.1 H, Plt Count 177, MPV 11.6, Immature Gran % (Auto) 0.300, Neut % (Auto) 33.0 L, Lymph % (Auto) 46.3 H, [place] % (Auto) 18.7 H, Eos % (Auto) 1.4, Baso % (Auto) 0.3, Absolute Neuts (auto) 1.0 L, Absolute Lymphs (auto) 1.36, Nucleated RBC % 0, Differential Comment COMMENT, Platelet Estimate ADEQUATE, Polychromasia RARE, Hypochromasia 2+, Anisocytosis 2+ 10/31/19 05:05: Sodium 142, Potassium 3.9, Chloride 112 H, Carbon Dioxide 25.0, Anion Gap 5, BUN 19 H, Creatinine 1.01, Estim Creat Clear Calc 55.50, Est GFR (MDRD) Af Amer 91, Est GFR (MDRD) Non-Af 75, BUN/Creatinine Ratio 18.8, Glucose 81, Calcium 8.6, Ferritin 12 L Diagnostic Data Chest X-Ray 10/30/19 15:15 IMPRESSION: No acute abnormality is seen. Electronically Signed: Telly Diaz, at 15:38 EDT , Service support , Current Medications Pantoprazole Sodium 40 mg/ (Sodium Chloride) 110 mls @ 330 mls/hr IV Q12 [facility] Last Infusion: 10/30/19 21:55 Dose: Infused Documented by: Sodium Chloride () 250 mls @ 15 mls/hr IV .[id number] PRN PRN Reason: Saline Flush Sodium Chloride () 250 mls @ 15 mls/hr IV .[id number] PRN PRN Reason: Additional IVPB Infusion Metoprolol Tartrate (Lopressor (Beta Aleisha)) 25 mg PO BID [facility] Last Admin: 10/30/19 21:47 Dose: 25 mg Documented by: Sodium Chloride () 10 - 40 ml IV UD PRN PRN Reason: SALINE FLUSH Last Admin: 10/31/19 06:04 Dose: 10 ml Documented by: STROKE Vital Signs/Narrative: Vital Signs Temp Pulse Resp BP Pulse Ox 10/31/19 08:20 98.0 F 53 L 18 149/72 H 98 10/31/19 06:55 54 L 10/31/19 06:02 53 L Medical Necessity - Tobacco Use Smoking Status: Former smoker Tobacco Use: Non-smoker Assessment/Plan All Active Problems (Last Reviewed 03/31/19 @ 12:59 by Mandy Ogden) Anemia (Acute) Occult blood positive stool (Acute) Palpitation (Acute) Leukopenia (Acute) Ruptured abdominal aortic aneurysm (AAA) (Resolved) History of AAA (abdominal aortic aneurysm) repair (Resolved 03/04/18) Abscess (Resolved) 1. Acute iron deficiency anemia * s/p 2 units of PRBCs * Hb today is 8.1 * iron panel showed iron defiency anemia, with ferritin of 12, iron of 15 and iron saturation of 4.1, TIBC was 362 * general surgery on board * says he used to take iron pills, but stopped on his own ~ 1 month ago. * On IV pantoprazole * 2. Paroxysmal afib: * Has been bradycardic with heart rate been in the mid 50s. * And asymptomatic. Will monitor. * On metoprolol. If bradycardia persists, will consider reducing metoprolol from 25 mg twice daily to 12.5 mg twice daily.] * 3. Hypertension: On metoprolol. 4. Leukopenia: White cell count is 2.8. This is chronic. Will monitor. 5.Hyperlipidemia: On statin. will monitor DVT prophylaxis: SCDs Inpatient E&M: 09114 Subs Hosp L2
--- NOTE | 2019-10-31 10:45 | NURSING ---
Off unit to ENDO.
--- NOTE | 2019-10-31 11:05 | IMM_PTH ---
PATIENT: RUSS VAZ LOC: MS3 U#:[id number] AGE/SX: 79/M ROOM: [facility]30[facility]: Dr. Tessy Winchester MD : [id number] BED: 1 DIS: 11/02/2019 SPEC #: [id number] RECD: 11/02/19 08:57 STATUS: SOUT REQ #: [id number] JW: 10/31/19 11:[address]: Gwendolyn Duran DEPT: IMMUNOHISTOCHEMISTRY RECD BY: Belia Renteria ENTERED: 11/02/19 08:58 SP TYPE: IMMUNO OTHR DR: MD Dr. Pipe Vaughan DO Dr. Nana Yaa Koram, MD Tissues: A - Stomach, NOS B - Cecum, NOS Procedures: H Pylori (initial) BCL-2 (add) CD20 (add) CD45 (add) CD5 (add) CD79A (add) CD3 (initial) PHYSICIAN & INSTITUTION [address] [address] SPECIMEN INFORMATION: Tissue Source: A - Antrum biopsy, B - Cecum polyp Clinical Info: Anemia, occult blood Specimen Number: [id number] A & B CPT code: 33864 x2, 06008 x5 METHODOLOGY: Deparaffinized sections of prefer/formalin-fixed tissue or PAP/DQ stained slides are incubated with monoclonal/polyclonal antibodies/oligonucleotide probes. Localization is made via biotin free immunoperoxidase method. Appropriate controls are performed and reacted as expected. Results on target cell population are indicated in the following table: RESULTS: ANTIBODY / CLONE RESULT Block A H Pylori (polyclonal) negative Block B CD3 (PS1) positive CD5 (SP10) positive CD20 (L26) positive CD45 (RP2/18) positive CD79a (11E3) positive BCL-2 (bcl-2/100/D5) negative in germinal center These tests were developed and their performance characteristics determined by [facility]. They may not have been cleared or approved by the U.S. Food and Drug Administration. The FDA has determined that such clearance or approval is not necessary. The above immunohistochemical/dualISH markers are ordered and reviewed by the pathologist. INTERPRETATION: A. Antrum biopsy: Negative for Helicobacter pylori organisms. B. Cecum polyp, biopsy: Prominent lymphoid aggregate, polytypic in nature, favor benign. This case has been reviewed in consultation with Dr. Haile who concurs with the above diagnosis. SJ:saida 11/05/19
--- NOTE | 2019-10-31 11:05 | EGD_PTH ---
PATIENT: RUSS VAZ LOC: MS3 U#:[id number] AGE/SX: 79/M ROOM: [facility] [place] RE10/30/[address]: Dr. Tessy Winchester MD : 1940 BED: 1 DIS: 11/02/2019 SPEC #: [id number] RECD: 10/31/19 11:38 STATUS: COLETTE VILLASEÑOR #: [id number] JW: 10/31/19 11:[address]: Gwendolyn Duran DEPT: SURGICAL PATHOLOGY RECD BY: Nawaf Cook ENTERED: 11/02/19 08:35 SP TYPE: EGD [facility] DR: MD Dr. Pipe Vaughan DO Dr. Nana Yaa Koram, MD Tissues: A - Gastric mucous membrane B - Cecum, NOS Procedures: Surgery Specimen Level IV HEADER OPERATION: EGD ([facility] [place] PRE-OP DIAGNOSIS: Anemia, occult blood TISSUE SUBMITTED: A - Antrum biopsy for histo and H. pylori, B - Cecum polyp (cold snare) MICROSCOPIC DIAGNOSIS A. Antrum, biopsy: Mild gastritis. See microscopic description and comment. B. Cecum polyp, biopsy: A fragment of colonic mucosa with a prominent lymphoid aggregate, favor benign. See comment. ELENITA:saida 11/04/19 COMMENT A. The results of immunohistochemistry for Helicobacter pylori will be reported separately ([id number]). B. Immunohistochemistry ([id number]) supports the above diagnosis. Case has been reviewed in consultation with Dr. Collazo who concurs with the above diagnosis. IDC:AM MICROSCOPIC DESCRIPTION Slides are reviewed. A. The specimen shows fragments of gastric mucosa with chronic inflammatory cell infiltrates in the lamina propria consisting of lymphocytes and plasma cells, consistent with mild chronic gastritis. GROSS DESCRIPTION A - Received in fixative is one container labeled with the patient's name and designated antrum biopsy. The specimen consists of one irregular fragment of light ferguson soft tissue that measures 0.3 x 0.3 x 0.1 cm. The specimen is totally submitted in one cassette. / ELENITA:saida 11/02/19 B - Received in fixative is one container labeled with the patient's name and designated cecum polyp. The specimen consists of multiple irregular fragments of light ferguson soft tissue mixed with fecal material that in aggregate measure 1 x 0.3 x 0.1 cm. The specimen is totally submitted in one cassette. / ELENITA:saida 11/03/19 TC:5 CPT: 59587 x2
--- NOTE | 2019-10-31 11:22 | OP.EGD_ITS ---
Patient Name: Jax York Procedure Date: 10/31/2019 10:44 AM Date of : 1940 Age: 79 Procedure: Upper GI endoscopy Indications: Iron deficiency anemia Providers: Gwendolyn Duran MD Medicines: See the Anesthesia note for documentation of the administered medications Patient Profile: Refer to note in patient chart for documentation of history and physical. Complications: No immediate complications. Procedure: Pre-Anesthesia Assessment: - see anesthesia note After obtaining informed consent, the endoscope was passed under direct vision. Throughout the procedure, the patient's blood pressure, pulse, and oxygen saturations were monitored continuously. The gastroscope was introduced through the mouth, and advanced to the second part of duodenum. The upper GI endoscopy was accomplished without difficulty. The patient tolerated the procedure well. Scope In: 11:00:16 AM Scope Out: 11:06:16 AM Total Procedure Duration Time 0 hours 6 minutes 0 seconds Findings: The first portion of the duodenum and second portion of the duodenum were normal. No gross lesions were noted in the entire examined stomach. Biopsies for histology were taken with a cold forceps for evaluation of celiac disease. Verification of patient identification for the specimen was done by the nurse. Estimated blood loss was minimal. A very small hiatal hernia was present. No signs of GI bleed - no blood clots, etc No ulcers or masses seen Impression: - Normal first portion of the duodenum and second portion of the duodenum. - No gross lesions in the stomach. Biopsied. - Very Small hiatal hernia. Recommendation: - [facility] to [facility] for [facility]. - Resume previous diet. - Continue present medications. Procedure Code(s): --- Professional --- 39247, Esophagogastroduodenoscopy, flexible, transoral; with biopsy, single or multiple Diagnosis Code(s): --- Professional --- K44.9, Diaphragmatic hernia without obstruction or gangrene D50.9, Iron deficiency anemia, unspecified CPT copyright 2017 [employer]. All rights reserved. The codes documented in this report are preliminary and upon planner intern review may be revised to meet current compliance requirements. MD Gwendolyn Suresh MD 10/31/2019 11:22:11 AM This report has been signed electronically. Number of Addenda: 0 Note Initiated On: 10/31/2019 10:44 AM
--- NOTE | 2019-10-31 11:22 | OP.CCLET_ITS ---
10/31/2019 Sanjay Espinal Re : Upper GI endoscopy procedure for Jax Duron Joelleevelinanatasha This procedure was performed on Thursday, October 31, 2019. My impressions and recommendations are as follows: Impressions : - Normal first portion of the duodenum and second portion of the duodenum. - No gross lesions in the stomach. Biopsied. - Very Small hiatal hernia. Recommendations : - [facility] to [facility]. - Resume previous diet. - Continue present medications. My findings are described in the full procedure note, which is enclosed. If I can be of further assistance, please feel free to contact me at Doctor phone number(s): , Work: . Sincerely, MD Gwendolyn Suresh MD 10/31/2019 11:22:11 AM This report has been signed electronically.
[2019-10-31] MEDS: Metoprolol Tartrate 25 MG Tablet PO ×2 (12:31→21:32)
--- NOTE | 2019-10-31 15:15 | CASEMGMT ---
RN CM Assessment Note Presentation: acute iron deficiency anemia. Intro role of CM and purpose of RN CM assessment to patient in room. Pt is awake, MODOC, alert and able to participate. Demographics, PCP and Pharmacy verified. Pt states he is very independent, cares for his who has care needs. No concerns re: dc. States family is caring for while he is at hospital. Plans to return home as soon as I can, I miss her. PCP: Dr. Espinal Specialists: Dr. Sam [facility]erred [facility] Insurance: [facility] Prescription Benefit: yes LNOK : Living Arrangements: Lives independently. No care needs identified. Transportation: drives DME: none HHC: none Patient DC goals: Home DC PLAN: Home. RN CM advised to contact cm for any concerns/needs that may arise.
[2019-11-01] VITALS (13 sets, daily range): BP systolic 146–177; BP diastolic 61–77; PULSE 52–61; RESP 16–18; TEMP 36.4–36.7; O2SAT 94–98
[2019-11-01 05:31] LABS: Absolute Lymphocyte Count 1.54 X10^3/uL (0.83-4.51); Absolute Neutrophil Count 2.1 X10^3/uL (2.0-7.7); Basophil# 0.01 X10^3/uL; Basophil% 0.2 % (0-1); Eosinophil# 0.04 X10^3/uL; Eosinophils% 0.9 % (0-5); Hematocrit 28.5 % (40-54); Hemoglobin 8.5 g/dL (13.0-16.5); Lymphocyte # 1.54 X10^3/ul (4.0); Mean Corp Hgb Conc 29.8 g/dL (32-36); Mean Corpuscular Hgb 26.9 pg (27.0-32.0); Mean Corpuscular Volume 90.2 fL (80-94); Mean Platelet Vol. 10.8 fl (6.2-12.0); Monocyte# 0.84 X10^3/uL; Monocyte% 18.5 % (0-10); NRBC Flagged by Analyzer 0 % (0-5); Neutrophil # 2.07 X10^3/uL (2.7-7.7); Neutrophil % 45.7 % (47-70); Platelet Count 169 K/mm3 (150-450); RBC Distribution Width CV 18.3 % (11.6-14.6); RBC Distribution Width SD 58.1 fl (35.1-43.9); Red Blood Count 3.16 M/mm3 (4.6-6.2); White Blood Count 4.5 K/mm3 (4.4-11.0)
[2019-11-01 05:47] LABS: Anion Gap 5 (5-15); BUN 17 mg/dL (7-18); BUN/Creat Ratio 15.6 RATIO (10-20); Calcium,Total 8.4 mg/dL (8.5-10.1); Chloride 111 mmol/L (98-107); Creatinine, Serum 1.09 mg/dL (0.70-1.30); EST Glomerular Filtration Rate 69 mL/min (>60); Est Glom Filt Rate - Afr Amer 83 mL/min (>60); Estimated Creatinine Clearance 51.42 ml/min; Glucose 82 mg/dL (74-106); Potassium 3.7 mmol/L (3.5-5.1); Sodium Level 140 mmol/L (136-145)
--- NOTE | 2019-11-01 09:48 | PN_ITS ---
Patient Problems: Active and Suspected Problems (Last Reviewed 03/31/19 @ 12:59 by Mandy Ogden) Anemia (Acute) Occult blood positive stool (Acute) Palpitation (Acute) Leukopenia (Acute) Subjective: Patient seen and examined. He had no complaints this morning. Review of stems otherwise negative. He had EGD yesterday with negative findings. Patient tells me today that he would prefer to stay in the hospital and have his colonoscopy tomorrow. Labs and vitals reviewed. Vitals have remained stable. Hemoglobin today is 8.5. Vitals/I&O's: Vital Signs Temp Pulse Resp BP Pulse Ox 97.5 F L 56 L 18 148/77 H 96 11/01/19 08:31 11/01/19 08:31 11/01/19 08:31 11/01/19 08:31 11/01/19 08:31 Oxygen Delivery Method Room Air Weight: 163 lb 2.273 oz Body Mass Index (BMI) 24.7 Intake and Output for Last 24 Hours 10/30/19 10/31/19 11/01/19 23:59 23:59 23:59 Intake Total 535 / 635 1663.25 / 1663.25 260 / 260 Output Total 250 / 250 500 / 500 Balance 535 / 635 1413.25 / 1413.25 -240 / -240 General: Alert, Oriented x3, Cooperative, No apparent distress HEENT: Atraumatic, PERRLA, EOMI, Normocephalic Oral: Moist Mucosa Neck: Supple, No JVD, Negative Carotid Bruits, Negative Hepatojugular Reflux, No Nodes Lungs: Clear to auscultation, Normal air movement, No rhonchi, No wheeze Cardiovascular: Regular rate, Regular Rhythm, Normal S1, Normal S2, No murmurs Abdomen: Bowel Sounds Present Extremities: No clubbing, No cyanosis, No edema, Capillary Refill Less than 3 Seconds Skin: No rashes, No breakdown Musculoskeletal: No Tenderness to Palpation of Joints or Extremities Lymphatic: No Cervical, Supraclavicular, or Inguinal Adenopathy Neurological: Cranial nerves II-XII grossly intact, Neuro grossly intact, Motor Exam 5/5 strength throughout Psych/Mental Status: Normal Affect, Appropriate, Alert and oriented to time, place, person, mood and affect Microbiology Past 72 Hours 10/30/19 16:19 Stool Stool Occult Blood (STUART) - Final Occult Blood Positive Laboratory Results 11/01/19 04:50: WBC 4.5, RBC 3.16 L, Hgb 8.5 L, Hct 28.5 L, MCV 90.2, MCH 26.9 L , MCHC 29.8 L, RDW Std Deviation 58.1 H, RDW Coeff of Radha 18.3 H, Plt Count 169, MPV 10.8, Immature Gran % (Auto) 0.700, Neut % (Auto) 45.7 L, Lymph % (Auto) 34.0, [place] % (Auto) 18.5 H, Eos % (Auto) 0.9, Baso % (Auto) 0.2, Absolute Neuts (auto) 2.1, Absolute Lymphs (auto) 1.54, Nucleated RBC % 0 11/01/19 04:50: Sodium 140, Potassium 3.7, Chloride 111 H, Carbon Dioxide 24.0, Anion Gap 5, BUN 17, Creatinine 1.09, Estim Creat Clear Calc 51.42, Est GFR (MDRD) Af Amer 83, Est GFR (MDRD) Non-Af 69, BUN/Creatinine Ratio 15.6, Glucose 82, Calcium 8.4 L Current Medications Pantoprazole Sodium 40 mg/ (Sodium Chloride) 110 mls @ 330 mls/hr IV Q12 CELINA Last Infusion: 10/31/19 22:36 Dose: Infused Documented by: Sodium Chloride () 250 mls @ 15 mls/hr IV .[id number] PRN PRN Reason: Saline Flush Last Infusion: 10/31/19 22:36 Dose: 0 mls/hr Documented by: Sodium Chloride () 250 mls @ 15 mls/hr IV .[id number] PRN PRN Reason: Additional IVPB Infusion Metoprolol Tartrate (Lopressor (Beta Aleisha)) 25 mg PO BID CELINA Last Admin: 10/31/19 21:32 Dose: 25 mg Documented by: Sodium Chloride () 10 - 40 ml IV UD PRN PRN Reason: SALINE FLUSH Last Admin: 10/31/19 23:15 Dose: 10 ml Documented by: Sodium Chloride/Electrolytes (Nulytely) 2,000 ml PO 0900,1500 CELINA Stop: 11/01/19 15:01 STROKE Vital Signs/Narrative: Vital Signs Temp Pulse Resp BP Pulse Ox 11/01/19 08:31 97.5 F L 56 L 18 148/77 H 96 11/01/19 07:45 52 L Medical Necessity - Tobacco Use Smoking Status: Former smoker Tobacco Use: Non-smoker Assessment/Plan All Active Problems (Last Reviewed 03/31/19 @ 12:59 by Mandy Ogden) Anemia (Acute) Occult blood positive stool (Acute) Palpitation (Acute) Leukopenia (Acute) Ruptured abdominal aortic aneurysm (AAA) (Resolved) History of AAA (abdominal aortic aneurysm) repair (Resolved 03/04/18) Abscess (Resolved) 1. Acute iron deficiency anemia * s/p 2 units of PRBCs * Hb today is 8.5 * iron panel showed iron defiency anemia, with ferritin of 12, iron of 15 and iron saturation of 4.1, TIBC was 362 * general surgery on board- had EGD yesterday with negative findings * on IV venofer 200mg daily x 3 * on IV pantoprazole. * patient prefers to staty in the hospital and have his colonoscopy before going home. * On IV pantoprazole * 2. Paroxysmal afib: * Has been bradycardic with heart rate been in the mid 50s. * currently rate controlled. * not on anticoagulation o/a of anemia. * has mild asymptomatic bradycardia, so will maintain metoprolol for now. * On metoprolol. If bradycardia persists, will consider reducing metoprolol from 25 mg twice daily to 12.5 mg twice daily.] * 3. Hypertension: On metoprolol. 4. Leukopenia: White cell count is up to 4.5 today. 5.Hyperlipidemia: On statin. DVT prophylaxis: SCDs Inpatient E&M: 86607 Subs Hosp L2
[2019-11-01] MEDS: Metoprolol Tartrate 25 MG Tablet PO ×2 (10:25→21:23)
[2019-11-01] MEDS: Electrolyte Solution/Peg's 4000 ML 2000 ML PO ×2 (10:25→14:45)
[2019-11-01] MEDS: 0.9% Saline Lock 10 ML Syringe IV (21:24)
[2019-11-02] VITALS (12 sets, daily range): BP systolic 113–149; BP diastolic 58–72; PULSE 53–60; RESP 16–18; TEMP 36.5–36.9; O2SAT 94–97; BMI 24.7
[2019-11-02 06:46] LABS: Absolute Lymphocyte Count 1.23 X10^3/uL (0.83-4.51); Absolute Neutrophil Count 1.4 X10^3/uL (2.0-7.7); Basophil# 0.01 X10^3/uL; Basophil% 0.3 % (0-1); Eosinophil# 0.05 X10^3/uL; Eosinophils% 1.5 % (0-5); Hematocrit 28.7 % (40-54); Hemoglobin 8.6 g/dL (13.0-16.5); Lymphocyte # 1.23 X10^3/ul (4.0); Lymphocyte % 37.7 % (19-41); Mean Corpuscular Hgb 27.7 pg (27.0-32.0); Mean Corpuscular Volume 92.6 fL (80-94); Mean Platelet Vol. 11.5 fl (6.2-12.0); Monocyte# 0.53 X10^3/uL; Monocyte% 16.3 % (0-10); NRBC Flagged by Analyzer 0 % (0-5); Neutrophil # 1.42 X10^3/uL (2.7-7.7); Neutrophil % 43.6 % (47-70); Platelet Count 165 K/mm3 (150-450); RBC Distribution Width CV 18.9 % (11.6-14.6); White Blood Count 3.3 K/mm3 (4.4-11.0)
[2019-11-02 07:05] LABS: Anion Gap 6 (5-15); BUN 16 mg/dL (7-18); BUN/Creat Ratio 15.5 RATIO (10-20); Calcium,Total 8.7 mg/dL (8.5-10.1); Chloride 114 mmol/L (98-107); Creatinine, Serum 1.03 mg/dL (0.70-1.30); EST Glomerular Filtration Rate 74 mL/min (>60); Est Glom Filt Rate - Afr Amer 89 mL/min (>60); Estimated Creatinine Clearance 54.42 ml/min; Glucose 71 mg/dL (74-106); Partial Thromboplast Time 31.8 Seconds (24.1-36.2); Potassium 3.6 mmol/L (3.5-5.1); Sodium Level 142 mmol/L (136-145)
[2019-11-02] MEDS: Metoprolol Tartrate 25 MG Tablet PO (09:10)
[2019-11-02] MEDS: 0.9% Saline Lock 10 ML Syringe IV (09:11)
--- NOTE | 2019-11-02 09:37 | NURSING ---
pt to endo
[2019-11-02] MEDS: 0.9% Normal Saline 1,000 ML 100 ML IV (10:05)
--- NOTE | 2019-11-02 11:09 | OP.CCLET_ITS ---
11/02/2019 Sanjay Espinal Re : Colonoscopy procedure for Jax Duron Joellexin This procedure was performed on Saturday, November 02, 2019. My impressions and recommendations are as follows: Impressions : - Non-bleeding internal hemorrhoids. - One 2 to 5 mm polyp in the cecum, removed with a cold snare. Resected and retrieved. Recommendations : - Repeat colonoscopy date to be determined after pending pathology results are reviewed for surveillance based on pathology results. - My office will telephone with pathology results in 1-2 weeks - Continue present medications. My findings are described in the full procedure note, which is enclosed. If I can be of further assistance, please feel free to contact me at Doctor phone number(s): , Work: . Sincerely, MD Gwendolyn Suresh MD 11/02/2019 11:09:00 AM This report has been signed electronically.
--- NOTE | 2019-11-02 11:09 | OP.COLON_ITS ---
Patient Name: Jax York Procedure Date: 11/02/2019 10:25 AM Date of : 1940 Age: 79 Procedure: Colonoscopy Indications: Abdominal pain in the left upper quadrant, Heme positive stool, Iron deficiency anemia Providers: Gwendolyn Duran MD Medicines: See the Anesthesia note for documentation of the administered medications Patient Profile: Refer to note in patient chart for documentation of history and physical. Last Colonoscopy: several years ago. Complications: No immediate complications. Procedure: Pre-Anesthesia Assessment: - see anesthesia note After I obtained informed consent, the scope was passed under direct vision. Throughout the procedure, the patient's blood pressure, pulse, and oxygen saturations were monitored continuously. The pediatric colonoscope was introduced through the anus and advanced to the cecum, identified by the appendiceal orifice, IC valve and transillumination. The colonoscopy was performed without difficulty. The patient tolerated the procedure well. The quality of the bowel preparation was adequate. Scope In: 10:39:42 AM Scope Withdrawal Time 0 hours 8 minutes 26 seconds Scope Out: 11:00:32 AM Total Procedure Duration Time 0 hours 20 minutes 50 seconds Findings: The perianal and digital rectal examinations were normal. Pertinent negatives include normal sphincter tone. Non-bleeding internal hemorrhoids were found. A 2 to 5 mm polyp was found in the cecum. The polyp was sessile. The polyp was removed with a cold snare. Resection and retrieval were complete. Verification of patient identification for the specimen was done by the nurse. Estimated blood loss was minimal. No evidence of bleeding from colon. Impression: - Non-bleeding internal hemorrhoids. - One 2 to 5 mm polyp in the cecum, removed with a cold snare. Resected and retrieved. Recommendation: - Repeat colonoscopy date to be determined after pending pathology results are reviewed for surveillance based on pathology results. - My office will telephone with pathology results in 1-2 weeks - Continue present medications. Procedure Code(s): --- Professional --- 97385, Colonoscopy, flexible; with removal of tumor(s), polyp(s), or other lesion(s) by snare technique Diagnosis Code(s): --- Professional --- K64.8, Other hemorrhoids D12.0, Benign neoplasm of cecum R10.12, Left upper quadrant pain R19.5, Other fecal abnormalities D50.9, Iron deficiency anemia, unspecified CPT copyright 2017 [employer]. All rights reserved. The codes documented in this report are preliminary and upon job developer for deaf adults review may be revised to meet current compliance requirements. MD Gwendolyn Suresh MD 11/02/2019 11:09:00 AM This report has been signed electronically. Number of Addenda: 0 Note Initiated On: 11/02/2019 10:25 AM
--- NOTE | 2019-11-02 11:09 | PCM.PN.BLA ---
Progress Note No evidence of bleeding from either EGD (done on Saturday) or colonoscopy (done today) - small polyp found on colonoscopy - removed. Can discharge to home with iron supplementation. STROKE Vital Signs/Narrative: Vital Signs Temp Pulse Resp BP Pulse Ox 11/02/19 09:10 57 L 11/02/19 08:46 57 L 11/02/19 07:28 97.9 F 58 L 16 148/65 H 94
--- NOTE | 2019-11-02 11:26 | DCINST_ITS ---
- Discharge Diagnoses Current Active Problems: Current Active and Chronic Problems (Last Reviewed 03/31/19 @ 12:59 by Mandy Ogden) Anemia (Acute) Occult blood positive stool (Acute) Palpitation (Acute) Leukopenia (Acute) You will use the following diet at home:: Cardiac Your food should be the consistency of: Regular Your liquids should be the consistency of: Regular/Thin Discharge Activity: Return to Normal Activity Weight Bearing Status: Weight bearing as tolerated Call your doctor if you observe: Shortness of breath, Dizziness, Swelling in the ankles, Chest pain Instructions: Anemia Additional Instructions: counseled to be compliant with oral iron supplementation. Allergies/Adverse Reactions: Allergies No Known Allergies Allergy (Verified 03/31/19 12:57) Medications to take at Discharge Simvastatin 40 mg PO DAILY 09/22/16 aspirin 81 mg tablet,delayed release 81 mg PO DAILY 04/16/18 metoprolol tartrate 25 mg tablet 25 mg PO BID #60 tab 04/16/18 pantoprazole 40 mg tablet,delayed release 40 mg PO DAILY 04/16/18 Ferrous Sulfate 325 mg PO BID #60 tab 11/02/19 The following prescriptions were given: Ferrous Sulfate 325 mg PO BID #60 tab Transmission Status: Pending to [facility] Primary Care Physician: Sanjay Espinal MD [Primary Care Provider] - Please follow up with your Primary Care Physician in: 1-2 weeks Test Results: Test results from this visit will be discussed in further detail at your follow- up appointment, if applicable. Proposed Discharge Date: 11/02/19
--- NOTE | 2019-11-02 11:31 | PCM.DC.SUM ---
Discharge Date and Diagnosis Date of Admission: 10/30/19 Date of Discharge: 11/02/19 - Primary Discharge Diagnosis Active and Suspected Problems (Last Reviewed 03/31/19 @ 12:59 by Mandy Ogden) Anemia (Acute) Occult blood positive stool (Acute) Palpitation (Acute) Leukopenia (Acute) - Secondary Discharge Diagnosis Chronic Problems (Last Reviewed 03/31/19 @ 12:59 by Mandy Ogden) Essential (primary) hypertension (Chronic) Paroxysmal atrial fibrillation (Chronic) Hyperlipidemia (Chronic) Hospital Course and Treatment Imaging Results: Diagnostic Data Chest X-Ray 10/30/19 15:15 IMPRESSION: No acute abnormality is seen. Electronically Signed: Telly Diaz, at 15:38 EDT , Service support , general surgery- Dr Duran Operations: None Procedures: Colonoscopy, EGD Summary of Care Provided: The patient is a 79 year old M with an extensive past medical history as outlined. He was admitted through the ED on 10/30/2019 with a complaint of palpitations and abnormal chest discomfort. He denied any shortness of breath, diaphoresis or radiation of the discomfort into his arm or neck. Nicole in the ED, chest x-ray was unremarkable and BNP was 231. TSH was 4.24. EKG showed sinus bradycardia without evidence of any ischemic changes. Hemoglobin was however noted to be 7. He was admitted and managed for acute symptomatic anemia. He was transfused with 2 units of packed red blood cells and general surgery was consulted. He had EGD on 10/31/2019 which was negative. Hemoglobin came up to 8.1 after transfusion of 2 units of packed red blood cells. Of note, patient said he had been told that he was anemic and had been put on iron supplementation but had stopped taking the iron about a month ago because he said nobody had told him he had to take it forever. He had had a colonoscopy just about 2 years ago which was negative. He had a repeat colonoscopy on 11/02/2019 which showed nonbleeding internal hemorrhoids and 122 5 mm polyp in the cecum which was removed with a cold snare. He was discharged home on 11/02/2019. He is to follow up with his PCP in 1-2 weeks. He received IV Venofer 200 mg x 3 during admission and was also discharged with a prescription for p.o. iron supplementation and counseled to be compliant. Patient seen and examined prior to discharge. He had no complaints and felt well and was eager to be discharged. Review of stems otherwise negative. Labs and vitals reviewed. Home medication reviewed and reconciled. o/e: Vital Signs Temp Pulse Resp BP Pulse Ox 97.7 F L 58 L 16 139/59 H 97 11/02/19 11:48 11/02/19 11:48 11/02/19 11:48 11/02/19 11:48 11/02/19 11:48 [] General: Alert, Oriented x3, Cooperative, No apparent distress HEENT: Atraumatic, PERRLA, EOMI, Normocephalic Oral: Moist Mucosa Neck: Supple, No JVD, Negative Carotid Bruits Lungs: Clear to auscultation, Normal air movement, No rhonchi, No wheeze, No rales Cardiovascular: Regular rate, Regular Rhythm, Normal S1, Normal S2, No murmurs Abdomen: Bowel Sounds Present, Soft, Non Tender, Non-Distended Extremities: No clubbing, No cyanosis, No edema, Capillary Refill Less than 3 Seconds Skin: No rashes, No breakdown Musculoskeletal: No Tenderness to Palpation of Joints or Extremities Lymphatic: No Cervical, Supraclavicular, or Inguinal Adenopathy Neurological: Cranial nerves II-XII grossly intact, Neuro grossly intact, Motor Exam 5/5 strength throughout Psych/Mental Status: Normal Affect, Appropriate, Alert and oriented to time, place, person, mood and affect Plan is for discharge home today. - Physical Exam Vitals/I&O's: Vital Signs Temp Pulse Resp BP Pulse Ox 98.4 F 57 L 18 139/68 H 94 11/02/19 11:27 11/02/19 11:27 11/02/19 11:27 11/02/19 11:27 11/02/19 11:27 Oxygen Delivery Method Room Air Weight: 163 lb 2.273 oz Body Mass Index (BMI) 24.7 Intake and Output for Last 24 Hours 10/31/19 11/01/19 11/02/19 23:59 23:59 23:59 Intake Total 1663.25 / 1663.25 1298.75 / 3098.75 1910 / 1910 Output Total 250 / 250 500 / 500 Balance 1413.25 / 1413.25 798.75 / 2598.75 1909 Microbiology Past 72 Hours 10/30/19 16:19 Stool Stool Occult Blood (STUART) - Final Occult Blood Positive Laboratory Results 11/02/19 06:00: WBC 3.3 L, RBC 3.10 L, Hgb 8.6 L, Hct 28.7 L, MCV 92.6, MCH 27.7, MCHC 30.0 L, RDW Std Deviation 62.0 H, RDW Coeff of Radha 18.9 H, Plt Count 165, MPV 11.5, Immature Gran % (Auto) 0.600, Neut % (Auto) 43.6 L, Lymph % (Auto) 37.7, [place] % (Auto) 16.3 H, Eos % (Auto) 1.5, Baso % (Auto) 0.3, Absolute Neuts (auto) 1.4 L, Absolute Lymphs (auto) 1.23, Nucleated RBC % 0 11/02/19 06:00: Sodium 142, Potassium 3.6, Chloride 114 H, Carbon Dioxide 22.0, Anion Gap 6, BUN 16, Creatinine 1.03, Estim Creat Clear Calc 54.42, Est GFR (MDRD) Af Amer 89, Est GFR (MDRD) Non-Af 74, BUN/Creatinine Ratio 15.5, Glucose 71 L, Calcium 8.7 11/02/19 06:00: APTT 31.8 Current Medications Pantoprazole Sodium 40 mg/ (Sodium Chloride) 110 mls @ 330 mls/hr IV Q12 [facility] Last Infusion: 11/02/19 09:31 Dose: Infused Documented by: Sodium Chloride () 250 mls @ 15 mls/hr IV .[id number] PRN PRN Reason: Saline Flush Last Infusion: 11/01/19 23:05 Dose: 0 mls/hr Documented by: Sodium Chloride () 250 mls @ 15 mls/hr IV .[id number] PRN PRN Reason: Additional IVPB Infusion Sodium Chloride () 1,000 mls @ 100 mls/hr IV .Q10H CELINA Last Admin: 11/02/19 10:05 Dose: 100 mls/hr Documented by: Iron Sucrose 200 mg/ Sodium (Chloride) 110 mls @ 220 mls/hr IV X1 ONE Stop: 11/02/19 11:47 Metoprolol Tartrate (Lopressor (Beta Aleisha)) 25 mg PO BID CELINA Last Admin: 11/02/19 09:10 Dose: 25 mg Documented by: Sodium Chloride () 10 - 40 ml IV UD PRN PRN Reason: SALINE FLUSH Last Admin: 11/02/19 09:11 Dose: 10 ml Documented by: Discharge Diet: Low fat/ Low Cholesterol Discharge Activity: Return to Normal Activity Weight Bearing Status: Weight bearing as tolerated Call your doctor if you observe: Shortness of breath, Dizziness, Swelling in the ankles, Chest pain Home Medications: Medications to take at Discharge Simvastatin 40 mg PO DAILY 09/22/16 aspirin 81 mg tablet,delayed release 81 mg PO DAILY 04/16/18 metoprolol tartrate 25 mg tablet 25 mg PO BID #60 tab 04/16/18 pantoprazole 40 mg tablet,delayed release 40 mg PO DAILY 04/16/18 Ferrous Sulfate 325 mg PO BID #60 tab 11/02/19 Following Prescrptions Were Given to Patient: Ferrous Sulfate 325 mg PO BID #60 tab Transmission Status: Received by [id number] Primary Care Physician: Sanjay Espinal MD [Primary Care Provider] - Please follow up with your Primary Care Physician in: 1-2 weeks Patient Instructions: Anemia Disposition: Home Minutes spent on discharge:: 40 Patient Condition:: Stable Medical Necessity - Tobacco Use Smoking Status: Former smoker Tobacco Use: Non-smoker Meaningful Use Info Meaningful Use Diagnoses (Choose all that apply): None applicable Inpatient E&M: 95162 Disch Hosp
== END 2019-11-02 13:42 | disposition home or self-care (01) | DRG 812 ==
LOC: ED 17:07 → MS3 18:19
PROVIDERS: Anesthesiology; Surgery; Admitting Provider Internal Medicine; Emergency Provider Emergency Medicine; PCP Family Medicine; Visit Provider Student in an Organized Health Care Education/Training Program
PROC: 0DJ08ZZ Inspection of Upper Intestinal Tract, Via Natural or Artificial Opening Endoscopic (ICD-10-PCS; CPT 43235; principal; 2019-10-31 11:00)
PROC: 0DJD8ZZ Inspection of Lower Intestinal Tract, Via Natural or Artificial Opening Endoscopic (ICD-10-PCS; CPT 45378; principal; 2019-11-02 10:25)
DX: D50.9 Iron deficiency anemia, unspecified (principal); D12.0 Benign neoplasm of cecum; K64.8 Other hemorrhoids; R19.5 Other fecal abnormalities; I48.0 Paroxysmal atrial fibrillation; R00.1 Bradycardia, unspecified; D72.819 Decreased white blood cell count, unspecified; I10 Essential (primary) hypertension; E78.5 Hyperlipidemia, unspecified; Z79.82 Long term (current) use of aspirin; Z79.899 Other long term (current) drug therapy; Z87.891 Personal history of nicotine dependence; Z86.79 Personal history of other diseases of the circulatory system
CPT/HCPCS: 36415; 71045; 80048; 82274; 82728; 83540; 83550; 83735; 83880; 84443; 84484; 85025; 85610; 85730; 86850; 86900; 86901; 86920; 86922; 88305; 88341; 88342; 93005; 99285; J1756; J7030; J7040; J7050; P9016; A4216; J2405

== ENCOUNTER → 2021-06-09 08:49 | Outpatient (CLI) | payer MEDICARE, SELFPAY ==
--- NOTE | 2021-06-09 08:59 | ECHOD_ITS ---
Reason For Study: Murmur Procedure This was a 2D Doppler, Color Flow transthoracic echocardiogram. Exam performed in department. Left Ventricle Normal LV size. Mild concentric left ventricular hypertrophy. Left ventricular systolic function is normal. The estimated ejection fraction is 55 %. Stage 1 diastolic dysfunction. No regional wall motion abnormalities noted. Right Ventricle Normal RV size. Normal systolic function. Atria Normal left atrium. Normal right atrium. Mitral Valve Normal mitral valve. Mild (1+) eccentric mitral valve insufficiency. Tricuspid Valve Normal tricuspid valve. Mild tricuspid valve insufficiency. Pulmonary artery systolic pressure is 27 mmHg. Aortic Valve Trisinus/trileaflet aortic valve. Pulmonic Valve Normal pulmonic valve. Mild (1+) pulmonic valve insufficiency. Great Vessels Normal aortic root. The pulmonary artery is normal size. Normal inferior vena cava. Pericardium/Pleural No pericardial effusion. MMode/2D Measurements & Calculations LVIDd: 3.8 cm IVSd: 1.2 cm Ao root diam: 3.6 cm LVIDs: 2.4 cm LVPWd: 1.3 cm RVDd: 3.3 cm FS: 35.2 % LAV(MOD-bp): 73.7 ml LVAd ap4: 30.8 cm2 LVAd ap2: 27.2 cm2 LAV(MOD-bp) Indexed: 38.2 ml/m2 LVLd ap4: 8.7 cm LVLd ap2: 8.7 cm LAV(MOD-sp2): 79.3 ml EDV(MOD-sp4): 89.5 ml EDV(MOD-sp2): 73.3 ml LAV(MOD-sp4): 62.9 ml EDV(sp4-el): 92.8 ml EDV(sp2-el): 72.2 ml LVAs ap4: 17.5 cm2 LVAs ap2: 14.9 cm2 LVLs ap4: 7.3 cm LVLs ap2: 7.7 cm ESV(MOD-sp4): 35.8 ml ESV(MOD-sp2): 27.1 ml ESV(sp4-el): 35.5 ml ESV(sp2-el): 24.4 ml EF(MOD-sp4): 60.0 % EF(MOD-sp2): 63.0 % EF(sp4-el): 61.7 % SV(MOD-sp4): 53.7 ml SV(MOD-sp2): 46.1 ml SV(sp4-el): 57.3 ml LA dimension(2D): 4.3 cm LA A4 area: 20.2 cm2 RA A4 area: 16.3 cm2 Doppler Measurements & Calculations MV E max demetrius: 74.4 cm/sec Lat Peak E' Demetrius: 6.7 cm/sec Med Peak E' Demetrius: 6.1 cm/sec MV A max demetrius: 92.2 cm/sec E/E' lat: 11.2 E/E' med: 12.1 MV E/A: 0.81 Ao V2 max: 122.9 cm/sec LV V1 max: 95.0 cm/sec PA V2 max: 80.1 cm/sec Ao max P.0 mmHg LV V1 max P.6 mmHg TR max demetrius: 240.1 cm/sec TR max P.3 mmHg ECHO/Echo Complete Interpretation Summary Normal LV size. Mild concentric left ventricular hypertrophy. Left ventricular systolic function is normal. The estimated ejection fraction is 55 %. Stage 1 diastolic dysfunction. Pulmonary artery systolic pressure is 27 mmHg. Ordering Physician: Diana Carlson/Johnnie Sam Referring Physician: Sanjay Espinal M.D. Performed By: Laney Willett RDCS
--- NOTE | 2021-06-09 08:59 | AAVD_ITS ---
Reason For Study: AAA Aorta Measurements Aorta Doppler Measurements Proximal aorta measures1.83 x 1.83cm. in cross- Peak systolic flow velocities within the proximal sectional axis. aorta measure 103.4 cm/sec. Proximal aorta measures1.85cm. in longitudinal Peak systolic flow velocities within the mid aorta axis. measure 79.6 cm/sec. Mid aorta measures2.04 x 2.01cm. in cross- Peak systolic flow velocities within the distal sectional axis. aorta measure 30.2 cm/sec. Mid aorta measures2.06cm. in longitudinal axis. Distal aorta measures2.10 x 2.12cm. in cross- sectional axis. Distal aorta measures2.07cm. in longitudinal axis. Stent graft noted in the mid-distal aorta. Distal residual sac measures 2.70 x 2.86 x 2.55 cm. Left Iliac Artery Left iliac artery measures 0.77 x 0.80 cm. in the cross-sectional axis. Left iliac artery measures 0.75 cm. in the longitudinal axis. Peak systolic velocity in the left iliac artery measures 300 cm/sec. Right Iliac Artery Right iliac artery measures 0.77 x 0.79 cm. in the cross-sectional axis. Right iliac artery measures 0.76 cm. in the longitudinal axis. Peak systolic velocity in the right iliac artery measures 144 cm/sec. Procedure Aorta IVC Iliac vasculature or bypass grafts 68485. Exam performed in department. VL/Abd Aortic/IVC Duplex scan Interpretation Summary No evidence of aneurysm noted throughout the aortoiliac segment. 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 Ordering Physician: Diana Carlson Referring Physician: Sanjay Espinal Performed By: Milagros Wilson RVT
[2021-06-09 10:39] LABS: Hematocrit 37.8 % (40-54); Hemoglobin 11.7 g/dL (13.0-16.5); Mean Corpuscular Hgb 30.8 pg (27.0-32.0); Mean Corpuscular Volume 99.5 fL (80-94); Mean Platelet Vol. 11.1 fl (6.2-12.0); Platelet Count 133 K/mm3 (150-450); RBC Distribution Width CV 15.9 % (11.6-14.6); RBC Distribution Width SD 58.4 fl (35.1-43.9); White Blood Count 3.8 K/mm3 (4.4-11.0)
[2021-06-09 11:03] LABS: Hemoglobin A1c 4.6 % (3.8-5.6)
[2021-06-09 11:14] LABS: Anion Gap 3 (5-15); BUN 22 mg/dL (7-18); BUN/Creat Ratio 16.8 RATIO (10-20); Calcium,Total 9.3 mg/dL (8.5-10.1); Chloride 109 mmol/L (98-107); Creatinine, Serum 1.31 mg/dL (0.70-1.30); EST Glomerular Filtration Rate 56 mL/min (>60); Est Glom Filt Rate - Afr Amer 67 mL/min (>60); Glucose 89 mg/dL (74-106); Potassium 4.6 mmol/L (3.5-5.1); Sodium Level 140 mmol/L (136-145)
== END ==
PROVIDERS: Orthopaedic Surgery; PCP Family Medicine; Referring Provider Physician Assistant Medical; Visit Provider Physician Assistant Medical
DX: Z01.818 Encounter for other preprocedural examination (principal); I71.3 Abdominal aortic aneurysm, ruptured; I48.0 Paroxysmal atrial fibrillation; I10 Essential (primary) hypertension; E78.5 Hyperlipidemia, unspecified; R01.1 Cardiac murmur, unspecified; Z98.890 Other specified postprocedural states
CPT/HCPCS: 36415; 80048; 83036; 85027; 93306; 93978

== ENCOUNTER 2021-06-16 05:55 | Day surgery (SDC) | payer MEDICARE, SELFPAY ==
[2021-06-16] VITALS (7 sets, daily range): BP systolic 130–153; BP diastolic 64–81; PULSE 50–64; RESP 16–18; TEMP 36.1–36.8; O2SAT 92–100; BMI 26.1
[2021-06-16] MEDS: Lactated Ringers 1,000 ML 15 ML IV (07:00)
[2021-06-16] MEDS: Ipratropium/Albuterol Sulfate 3 ML AMPUL.NEB INHALATION (07:05)
--- NOTE | 2021-06-16 07:30 | BON_PTH ---
PATIENT: RUSS VAZ LOC: [facility] [place] U#:[id number] AGE/SX: 80/M ROOM: RE06/16/[address]: Dr. Ranjeet Nguyen DO : 1940 BED: DIS: 06/16/2021 SPEC #: [id number] RECD: 06/16/21 11:06 STATUS: COLETTE REAnibal #: [id number] JW: 06/16/21 07:[address]: Ranjeet Nguyen DEPT: SURGICAL PATHOLOGY RECD BY: Nawaf Cook ENTERED: 06/16/21 13:08 SP TYPE: Bone OTHR DR: Dr. 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 Skin with focal ulceration and granulation. AM:saida 06/21/2021 MICROSCOPIC DESCRIPTION Slides are reviewed. GROSS DESCRIPTION Received in fixative is one container labeled with the patient's name and designated right tibial tubercle. The specimen consists of multiple irregular fragments of soft tissue with adherent bone that in aggregate measure 4 x 4 x 1 cm. Hadoop Analyst sections of bone and soft tissue are submitted in one cassette after decalcification. / AM:saida 06/16/21 TC:3 CPT: 40680, 65194
--- NOTE | 2021-06-16 08:01 | OP.PCM_ITS ---
Report of Operation Date of Procedure: 06/16/21 Pre-Operative Diagnosis: Mass right knee consistent with tibial tubercle nonuni on Post-Operative Diagnosis: same Surgery/Procedure Performed:: Excision mass right knee Surgeon: Ranjeet Nguyen elevated guard: Rafat Billy Type of Anesthesia: General Specimen's removed: tibial tubercle bone Estimated Blood Loss (mL): 10 cc Admit VTE Documentation VTE Present on Admission: No VTE Mechan Device Prophylaxis: SCD's and Thigh High HARMEET Hose VTE Pharm Prophylaxis ordered?: No Reason prophylaxis not ordered:: Treatment Not Indicated
[2021-06-16] MEDS: Lidocaine 1% /Epi 1:100 (20ml) 20 ML Vial (08:11)
== END 2021-06-16 10:44 | disposition home or self-care (01) ==
LOC: SDC 05:55 → AC 05:56
PROVIDERS: PCP Family Medicine; Referring Provider Orthopaedic Surgery; Visit Provider Orthopaedic Surgery
PROC: (CPT 27640; principal; 2021-06-16 07:15)
DX: M92.521 Juvenile osteochondrosis of tibia tubercle, right leg (principal); G89.29 Other chronic pain; M17.11 Unilateral primary osteoarthritis, right knee; I48.0 Paroxysmal atrial fibrillation; I10 Essential (primary) hypertension; E78.5 Hyperlipidemia, unspecified; E07.9 Disorder of thyroid, unspecified; H54.7 Unspecified visual loss; E66.3 Overweight; Z68.27 Body mass index [BMI] 27.0-27.9, adult; Z79.82 Long term (current) use of aspirin; Z79.890 Hormone replacement therapy; Z79.899 Other long term (current) drug therapy
CPT/HCPCS: 01480; 27640; 88305; 88311; 94640; J7120; J2405

== ENCOUNTER 2022-02-21 09:11 | Day surgery (SDC) | payer MEDICARE, SELFPAY ==
[2022-02-16 16:25] LABS: Absolute Lymphocyte Count 1.05 X10^3/uL (0.83-4.51); Absolute Neutrophil Count 1.4 X10^3/uL (2.0-7.7); Basophil# 0.01 X10^3/uL; Basophil% 0.3 % (0-1); Eosinophil# 0.04 X10^3/uL; Eosinophils% 1.3 % (0-5); Hematocrit 29.5 % (40-54); Lymphocyte # 1.05 X10^3/ul (0.83-4.51); Lymphocyte % 34.2 % (19-41); Mean Corp Hgb Conc 30.5 g/dL (32-36); Mean Corpuscular Hgb 30.3 pg (27.0-32.0); Mean Corpuscular Volume 99.3 fL (80-94); Mean Platelet Vol. 11.7 fl (6.2-12.0); Monocyte# 0.51 X10^3/uL; Monocyte% 16.6 % (0-10); NRBC Flagged by Analyzer 0 % (0-5); Neutrophil # 1.42 X10^3/uL (2.7-7.7); Neutrophil % 46.3 % (47-70); Platelet Count 165 K/mm3 (150-450); RBC Distribution Width CV 15.1 % (11.6-14.6); RBC Distribution Width SD 55.3 fl (35.1-43.9); Red Blood Count 2.97 M/mm3 (4.6-6.2); White Blood Count 3.1 K/mm3 (4.4-11.0)
[2022-02-16 16:48] LABS: Anion Gap 5 (5-15); BUN 20 mg/dL (7-18); BUN/Creat Ratio 17.7 RATIO (10-20); Calcium,Total 8.9 mg/dL (8.5-10.1); Chloride 110 mmol/L (98-107); Creatinine, Serum 1.13 mg/dL (0.70-1.30); EST Glomerular Filtration Rate 66 mL/min (>60); Est Glom Filt Rate - Afr Amer 80 mL/min (>60); Glucose 78 mg/dL (74-106); Potassium 4.2 mmol/L (3.5-5.1); Sodium Level 140 mmol/L (136-145)
[2022-02-16 19:53] LABS: AST(SGOT) 26 U/L (15-37); Alanine Aminotransfer ALT/SGPT 27 U/L (16-61); Alkaline Phosphatase 69 U/L (45-117); Bilirubin, Direct 0.13 mg/dL (0.00-0.30); Globulin 3.9 g/dL (2.2-4.2); Protein, Total 6.9 g/dL (6.4-8.2); Thyroid Stim Hormone (TSH) 3.32 uIU/mL (0.358-3.74)
--- NOTE | 2022-02-20 09:41 | NURSING ---
During PAT interview on 02/16/22, pt's dgtr said that pt was on his way to [facility] for Labs and EKG per Dr Bishop. On 02/19/22, pt's dgtr states that pt said he did not get an EKG on 02/16/[address] Bishop's office told him they could use a recent EKG from an ER visit on 02/11/22 at [facility]. 02/19/22 Dr Bishop's office said they did not locate the EKG. 02/20/22 This RN spoke with pt's dgtr to verify location of EKG. Jalyn at [facility] MR [phone], said the most recent EKG she had was 08/2020. Therefore, EKG is ordered for DOS 02/21/22.
[2022-02-21] VITALS (8 sets, daily range): BP systolic 150–191; BP diastolic 83–111; PULSE 66–98; RESP 15–16; TEMP 36.2–37; O2SAT 92–99; BMI 25.1
--- NOTE | 2022-02-21 09:18 | EKG12_ITS ---
Test Reason : PREOP Blood Pressure : / mmHG Vent. Rate : 065 BPM Atrial Rate : 065 BPM P-R Int : 156 ms QRS Dur : 082 ms QT Int : 408 ms P-R-T Axes : 036 013 028 degrees QTc Int : 424 ms Normal sinus rhythm Normal ECG When compared with ECG of 30-OCT-2019 14:55, No significant change was found Confirmed by KATTY BOSE, ANNABELLA ([id number]), department editor AGUILAR MEHTA ([id number]) on 02/22/2022 1:31:20 PM Referred By: Kiet Bishop Confirmed By:ANSHUL ALANIZ MD
--- NOTE | 2022-02-21 10:00 | RAD_ITS ---
EXAM: XR LEFT ANKLE COMPLETE, 3 OR MORE VIEWS CLINICAL INDICATION: LATERAL MALLEOLUS ORIF TECHNIQUE: Frontal, lateral and oblique views of the left ankle. This report was created using [employer] report generation technology. COMPARISON: None. FINDINGS: See Impression. RAD/Ankle min 3 Views IMPRESSION: Multiple intraoperative images submitted associated with lateral malleolus fracture fixation. Please see surgical report for full details. Electronically Signed: Gamaliel Latham MD at 20:17 EDT ,
[2022-02-21] MEDS: Lactated Ringers 1,000 ML 15 ML IV (10:09)
[2022-02-21 10:36] LABS: International Normalized Ratio 1.1; Prothrombin Time (Protime)PT. 13.8 SECONDS (11.7-14.9)
[2022-02-21] MEDS: Cefazolin 2 GM in 0.9% Normal Saline 100 ML IV (10:57)
--- NOTE | 2022-02-21 13:20 | DCINST_ITS ---
Discharge Instructions Follow Up Care Test Results: Test results from this visit will be discussed in further detail at your follow- up appointment, if applicable. Discharge Plan Admission Primary Reason for Your Visit: Left ankle surgery Attending Provider: Kiet Bishop Primary Care Provider: Bryant Jarvis Instructions Additional Instructions / Restrictions: Follow preprinted instructions from your surgeons office. Restart aspirin on postoperative day #1 Discharge Orders/Prescriptions Prescriptions: No Action pantoprazole 40 mg tablet,delayed release (DR/EC) 40 mg PO BID aspirin [Adult Low Dose Aspirin] 81 mg tablet,delayed release (DR/EC) 81 mg PO DAILY Label Comments: pt's dgtr states Sukh Miramontes instructed to stop aspirin, dgtr will confirm when to stop metoprolol tartrate 25 mg tablet 25 mg PO BID Qty: 60 3RF levothyroxine 25 mcg tablet 25 mcg PO DAILY Label Comments: take 1 tablet by mouth once daily vitamin A-vit C-vit E-zinc-Cu Tablet 2 tab PO BID Men's 50 Plus Multivitamin 400-20-370 mcg tablet 1 tab PO DAILY simvastatin 40 MG tablet 40 mg PO DAILY Label Comments: ferrous sulfate 27 mg iron Tablet 27 mg PO BID acetaminophen 325 mg Tablet 325 mg PO Q6H oxycodone 5 mg tablet 5 mg PO BID Label Comments: take 1 to 2 tablets by mouth every 6 hours Other Ambulatory Orders: 12 Lead EKG (Routine) Timeframe: 20220221 Facility: [facility] - Location: Cardiovascular Services Ordered By: Dr. Kiet Bishop Referrals / Follow Up: Kiet Bishop DO [Med Staff - Active Staff] - Within 2 Weeks Bryant Jarvis DO [Primary Care Provider] - Disposition Disposition (needs filled in before D/C Order can be placed): Home, Self Care
--- NOTE | 2022-02-21 13:20 | PCM.OPRPT ---
Report of Operation Date of Procedure: 02/21/22 Description of Surgical Findings:: Preoperative diagnosis: Left bimalleolar equivalent fracture left ankle Postoperative diagnosis: Left trimalleolar equivalent fracture with bony injury to the posterior malleolus and lateral malleolus, syndesmotic instability Procedure: 1.Left ankle lateral malleolus open reduction internal fixation with intramedullary fibular nail 2. Left ankle syndesmosis open reduction internal fixation Surgeon: Kiet Bishop DO Anesthesia: General endotracheal with popliteal block Anesthesiologist: Dr. Nguyen Complications: None apparent Drains: None Estimated blood loss: 75 cc Urinary output: None recorded IV fluids: 1500 cc crystalloid Specimens: None Surgical implants: Arthrex Fibulock 3.0 mm x 130 mm, 2.7 mm interlocking screws, Arthrex tight rope, Arthrex fiber tape cerclage Surgical indications: This is a 81 year-old male who sustained a mechanical fall to his left ankle. X-rays were obtained and demonstrated a lateral malleolus fracture. [place] stress view was obtained and demonstrated medial clear space widening. Operative intervention was recommended in the form of open reduction internal fixation of the left ankle. The risks include but are not limited to bleeding, infection, loss of life or limb, risk of anesthesia, risk of nerve block, persistent pain, nonunion, malunion, posttraumatic arthritis, instability, need for additional surgery, failure of orthopedic hardware, persistent limp or need for assistive device. Patient expressed understanding of these risks and wished to proceed. Description of procedure: Patient was seen in preoperative holding area. They were identified by name, medical record number, date of . The operative extremity was marked with a surgical marker. We confirmed informed consent with the patient and all questions were answered to his satisfaction. In the preoperative holding area, a popliteal block was administered by the anesthesia staff. At time of the procedure, patient was brought to the operative suite and positioned supine on a standard operating table. All bony prominences were well-padded. General Anesthesia was administered. After adequate anesthesia, a well-padded pneumatic tourniquet was applied to the left upper thigh. A large bump was placed in the patient's left hip. The left lower extremity was elevated on bath blankets for fluoroscopic imaging and access to the limb during surgery. We secured this with tape as well as the nonoperative extremity. We then performed a timeout with all parties in attendance and agree with the side, site, operation to be performed. No concerns were voiced and elected to proceed. 2 g Ancef was administered prior to incision by the anesthesia staff. We then prepped and draped the operative extremity using a ChloraPrep. I first brought in C arm to confirm an appropriate reduction. Given his age and preoperative reasonable reduction, we planned to proceed with intramedullary fixation of the fibula. C-arm did reveal a nondisplaced small posterior malleolus fracture which would explain the syndesmotic instability. I then placed a percutaneous pointed reduction clamp to better reduce the fibula. This achieved an acceptable, near anatomic reduction. I then placed the starting pin just medial to the tip of the lateral malleolus in line with the long axis on the lateral. Stab incision was made and dilated with a hemostat at the tip of the fibula. Starting K wire was then driven through both the proximal and distal segments achieving intramedullary position in the fibular shaft. I then placed the distal segment tapered reamer over top of the K wire and reaming was performed through the proximal segment to an appropriate depth. Reamer was then exchanged for the smaller proximal reamer which was also placed and utilized in similar fashion to appropriate depth. Fibular nail was then opened on the back table. K wire was removed. I then impacted the fibular nail to an appropriate depth. Fracture slightly displaced at this time. I elected to make a mini open reduction incision along the lateral fibula. Lobster-claw clamp was then placed along the fracture site achieving better reduction. The talons were then deployed in the proximal portion of the nail to achieve intramedullary fixation. I then placed 2 unicortical interlocking screws in the distal segment with stab incisions. A tight rope was then placed across the fibula and tibia through the nail utilizing the targeting guide. Far button was flipped and tensioned. Lobster-claw was removed. There was significant angulation noted at the fracture site. I elected to place a fiber tape cerclage around the fracture site to ensure no pressure on the skin. This was placed per counselor aide recommendations with excellent compression across the fracture site. Final fluoroscopic images were obtained. An external rotation stress test of the syndesmosis appeared stable. There was significant lateral tilting of the talus suggestive of deltoid ligament injury. I elected to treat this nonoperatively with a splint. Final fluoroscopic images were obtained. Wounds were copiously irrigated normal saline solution. Skin was closed in layers with buried 3-0 Vicryl suture and interrupted horizontal mattress 4-0 nylon suture. Patient tolerated procedure well without complication. Sterile compression dressing was applied as well as a well-padded 3 sided fiberglass short leg AO type splint in maximal dorsiflexion. He was safely extubated operative suite and transferred to his gurney and subsequently to PACU in stable condition. Need for skilled expanded function dental assistant: Roslyn Yancey PA-C was critical to the outcome of the case. During the course of the procedure the physician expanded function dental assistant played a vital role. Her intimate knowledge of my steps in the procedure aided in safe and expedient completion of the procedure. The PA played a vital role in positioning particularly in obtaining the appropriate positioning. The PA was also vital in the retraction of soft tissues during the exposure and protecting vital structures She also played a vital role in closure and splint application with my direct supervision. Intraoperative medications: 2 g Ancef prior to incision Post Operative Plan: Weightbearing: Nonweightbearing operative extremity Antibiotics: 2 g Ancef x 1 dose preoperatively DVT Prophylaxis: Restart home aspirin tomorrow postoperative day #1 Dressing: Maintain splint, keep it clean dry and intact until follow-up X-Rays: 2 weeks postop in the office Pain Medication: Percocet prescription provided as an outpatient Follow-up: 2 weeks post-operatively with me in the office, x-rays out of splint
== END 2022-02-21 15:53 | disposition home or self-care (01) ==
LOC: SDC 09:12 → AC 09:12
PROVIDERS: Anesthesiology; Referring Provider Student in an Organized Health Care Education/Training Program; Visit Provider Student in an Organized Health Care Education/Training Program
PROC: (CPT 27814; principal; 2022-02-21 10:40)
DX: S82.852A Displaced trimalleolar fracture of left lower leg, initial encounter for closed fracture (principal); I48.0 Paroxysmal atrial fibrillation; W17.81XA Fall down embankment (hill), initial encounter; M25.372 Other instability, left ankle; I10 Essential (primary) hypertension; E78.00 Pure hypercholesterolemia, unspecified; M19.90 Unspecified osteoarthritis, unspecified site; K21.9 Gastro-esophageal reflux disease without esophagitis; Z79.82 Long term (current) use of aspirin; Z79.899 Other long term (current) drug therapy
CPT/HCPCS: 27814; 27829; 64445; 36415; 73610; 76000; 80048; 80076; 84443; 85025; 85610; 85730; 93005; C1713; J7120; J2405

== ENCOUNTER 2022-06-28 19:17 | Inpatient (IN) | payer MEDICARE, SELFPAY ==
[2022-06-28] VITALS (18 sets, daily range): BP systolic 77–109; BP diastolic 55–82; PULSE 76–131; RESP 14–22; TEMP 36.7; O2SAT 93–97; BMI 24.5
--- NOTE | 2022-06-28 18:49 | EKG12_ITS ---
Test Reason : CP ADMIT Blood Pressure : / mmHG Vent. Rate : 102 BPM Atrial Rate : 000 BPM P-R Int : 000 ms QRS Dur : 080 ms QT Int : 342 ms P-R-T Axes : 000 028 026 degrees QTc Int : 445 ms Atrial fibrillation with rapid ventricular response Abnormal ECG Confirmed by GIGI BOSE, TRAE ([id number]), script editor AGUILAR MEHTA ([id number]) on 07/05/2022 10:12:26 AM Referred By: Confirmed By:TRAE YU MD
--- NOTE | 2022-06-28 19:26 | ECHOD_ITS ---
Reason For Study: Afib/Flutter Procedure This was a 2D Doppler, Color Flow transthoracic echocardiogram. The study was technically difficult. Exam performed portable in patient room. Left Ventricle Normal LV size. Left ventricular systolic function is normal. The estimated ejection fraction is 65 %. Diastolic function is indeterminate. No regional wall motion abnormalities noted. Right Ventricle Normal RV size. Normal systolic function. Atria The left atrium is moderately enlarged. Normal right atrium. No doppler evidence for ASD. Mitral Valve There is no mitral annular calcification. Mild focal mitral valve calcification of the anterior leaflet. Trivial mitral valve insufficiency. Tricuspid Valve Normal tricuspid valve. Mild tricuspid valve insufficiency. Right ventricular systolic pressure estimated to be 22 mmHg. Aortic Valve Trisinus/trileaflet aortic valve. Mild focal aortic valve calcification. Pulmonic Valve The pulmonic valve is not well visualized. Mild (1+) pulmonic valve insufficiency. Great Vessels Normal sized aortic root. Pericardium/Pleural No pericardial effusion. MMode/2D Measurements & Calculations LVIDd: 3.3 cm IVSd: 1.1 cm Ao root diam: 3.7 cm LVIDs: 2.4 cm LVPWd: 1.2 cm LA dimension: 4.4 cm RVDd: 3.9 cm FS: 28.5 % LAV(MOD-bp): 66.1 ml LA A4 area: 22.9 cm2 RA A4 area: 20.8 cm2 LAV(MOD-bp) Indexed: 34.6 ml/m2 LAV(MOD-sp2): 53.9 ml LAV(MOD-sp4): 68.4 ml Doppler Measurements & Calculations MV E max lukas: 93.7 cm/sec MV V2 max: 108.9 cm/sec Ao V2 max: 107.1 cm/sec MV max P.7 mmHg Ao max P.6 mmHg MV V2 mean: 53.4 cm/sec MV mean P.4 mmHg MV V2 VTI: 21.2 cm LV V1 max: 90.3 cm/sec PA V2 max: 79.1 cm/sec LV V1 max P.3 mmHg PI dec slope: 88.8 cm/sec2 LV V1 mean P.8 mmHg LV V1 mean: 62.5 cm/sec LV V1 VTI: 18.1 cm TR max lukas: 219.5 cm/sec TR max P.3 mmHg ECHO/Echo Complete Interpretation Summary The study was technically difficult. Left ventricular systolic function is normal. The estimated ejection fraction is 65 %. The left atrium is moderately enlarged. Mild focal mitral valve calcification of the anterior leaflet. Trivial mitral valve insufficiency. Mild tricuspid valve insufficiency. Mild focal aortic valve calcification. Mild (1+) pulmonic valve insufficiency. Right ventricular systolic pressure estimated to be 22 mmHg. Diastolic function is indeterminate. Ordering Physician: Kiet Lopez Performed By: Haile Donohue RCS
--- NOTE | 2022-06-28 20:01 | HP.PCM.HOS_ITS ---
HPI - General General Date of Admission: 06/28/22 HPI Narrative RUSS VAZ, is a 82 M who presents to an outside hospital with left arm and jaw pain. This has been going on for several weeks however today it seemed to be a little bit worse and lasted a little bit longer. He also noticed palpitations and a racing heart which she has also had intermittently in the past. He states that some of the left upper abdomen/lower chest discomfort that he has been having on and off has been occurring mostly after meals and actually resolves with activity. He specifically noted that he had this pain recur when he ate turkey sandwich with a lot of ureña. At the outside hospital he was noted to be in A. fib with RVR and he had a slight elevation his troponin that was trending down the first troponin was around 230 and the second troponin was around 220. He states that his left arm and jaw pain is better but still present. He denies any shortness of breath or lightheadedness. Of note he states that he has never had an ablation despite the documentation of says he has had an ablation for A. fib. He also states that he used to be on Xarelto but he had a ankle surgery here back in January where this was discontinued and never restarted, however on review of all of the cardiac notes in our system it does not appear that he is ever been on Xarelto and the medication lists. He does have a history of a GI bleed and he had a colonoscopy 2 years ago with a polypectomy and known he morrhoids. EGD at that time was unremarkable. He states that per report his stools are black which is chronic because of the iron supplementation that he takes but he did see his primary care doctor a week ago and he had stool that was positive for blood and when he was referred for a colonoscopy he was denied secondary to age his hemoglobin at the outside hospital was 12 which is at his baseline. [facility] Medical History (Updated 06/28/22 @ 20:[address] Kiet Lopez MD) Acute kidney injury Alcohol use Ambulates with cane Anemia Arthritis Bowel and bladder incontinence Cardiology follow-up encounter Chewing tobacco nicotine dependence Difficulty swallowing Easy bruising Essential (primary) hypertension Excessive bleeding Former smoker Gastric reflux GI bleed History of anemia History of atrial fibrillation History of echocardiogram History of edema History of hiatal hernia Hyperlipidemia Injury of head and neck Leg cramps Paroxysmal atrial fibrillation Prostate disease Ruptured abdominal aortic aneurysm (AAA) Shortness of breath on exertion Spinal stenosis of lumbar region Thrombocytopenia Thyroid disease Wears dentures Wears glasses Wears hearing aid Home Medications simvastatin 40 mg tablet 40 mg PO DAILY cholesterol 09/22/16 [History Last Taken 10/30/19] pantoprazole 40 mg tablet,delayed release 40 mg PO BID GERD 04/16/18 [History Last Taken 06/16/21] levothyroxine 25 mcg tablet 25 mcg PO DAILY thyroid 06/01/21 [History Last Taken 06/16/21] abevtqqxjhyp-qzi-skqys acid-vit K-lycop 400 mcg-20 mcg-370 mcg tablet (Men's 50 Plus Multivitamin) 1 tab PO DAILY 06/01/21 [History Last Taken Unknown] vitamin A-vit C-vit E-zinc-Cu tablet 2 tab PO BID 06/01/21 [History Last Taken Unknown] ferrous sulfate 27 mg iron tablet 27 mg PO BID 06/08/21 [History Last Taken Unknown] acetaminophen 325 mg tablet 325 mg PO Q6H PRN Fever Or Pain 02/16/22 [History Last Taken Unknown] lisinopril 10 mg tablet 10 mg PO DAILY blood pressure 06/28/22 [History Last Taken Unknown] metoprolol tartrate 25 mg tablet 25 mg PO BID heart 06/28/22 [History Last Taken 06/28/22 16:30] Allergy/AdvReac Type Severity Reaction Status Date / Time No Known Allergies Allergy Verified 02/21/22 09:55 Family History Mother Cancer Surgical History History of AAA (abdominal aortic aneurysm) repair (03/04/18) History of appendectomy History of colonoscopy History of esophagogastroduodenoscopy (EGD) History of knee surgery History of neck surgery History of radiofrequency ablation procedure for cardiac arrhythmia Social History (Updated 06/28/22 @ 18:05 by Sandy Meeks) current occupational status: retired Smoking Status: Former smoker quit date: 07/01/06 Smokeless tobacco user: snuff and other alcohol intake: never caffeine: No additional social history: 2 cans of snuff per week ROS Constitutional Constitutional: Denies chills, fatigue, fever(s) or malaise Eyes Eyes: Denies blurry vision ENT HEENT: Denies headache(s) or nasal discharge Cardiovascular Cardiovascular: Reports chest pain and palpitations; Denies dyspnea on exertion or syncope Respiratory/Chest Respiratory/Chest: Denies cough, shortness of breath at rest or shortness of breath with exertion Gastrointestinal Gastrointestinal: Denies constipation, diarrhea, nausea or vomiting Genitourinary Genitourinary: Denies dysuria Neurologic Neurologic: Denies focal weakness, numbness or tremor(s) Psychiatric Psychiatric: Denies anxiety or depression Vital Signs Vital Signs Vital Signs: 06/28/22 17:53 06/28/22 17:50 Temperature 98.1 F Temperature Source Oral Pulse Rate 130 H 117 H Respiratory Rate 14 Blood Pressure 105/82 H Blood Pressure Mean 89 Blood Pressure Source Monitor Blood Pressure Position Semi-Fowlers Blood Pressure Location Left Arm Pulse Ox 96 Oxygen Delivery Method Room Air Weight Weight: 166 lb 0.129 oz Body Mass Index (BMI) 24.5 Physical Exam Narrative General: Alert, Oriented x3, Cooperative, No apparent distress HEENT: Atraumatic, PERRLA, EOMI, Normocephalic Oral: Moist Mucosa Neck: Supple, No JVD Lungs: Diminished, Normal air movement, No rhonchi, No wheeze, No rales Cardiovascular: Irregular rate and rhythm, Normal S1, Normal S2, No murmurs Abdomen: Soft, Non Tender, Non-Distended, No Hepato-splenomegaly Extremities: No edema, Capillary Refill Less than 3 Seconds Skin: No rashes, No breakdown Musculoskeletal: No Tenderness to Palpation of Joints or Extremities Neurological: Cranial nerves II-XII grossly intact, Motor Exam 5/5 strength throughout, Sensory exam intact to light touch and pain Psych/Mental Status: Normal Affect, Appropriate Assessment & Plan Assessment/Plan (1) Atrial fibrillation with RVR: (2) Chest pain: PLAN: Plan 1. Chest pain with an elevated troponin in the presence of A. fib with RVR/HTN/HLD/history of ruptured aortic aneurysm ? We will repeat a troponin ? It does appear that his chest pain seems to be related to his A. fib currently, the history that he describes over the last several weeks seems to be more GI in origin given his diet and the association with food and the improvement with activity. Verbal report from the outside hospital ED was that he did have gallbladder sludge ? We will place him on a Cardizem drip and continue with his oral metoprolol if we have difficulty controlling his A. fib may need consult cardiology ? Proceed with an echo ? Given his current GI bleed and his age may not be a great candidate for anticoagulation ? We will continue with his home lisinopril as well as metoprolol ? Continue with statin 2. Iron deficiency anemia in the setting of hemorrhoid bleed/GERD ? Continue iron tablets ? Hemoglobin is stable ? We will continue with his PPI 3. Hypothyroidism ? Stable ? Continue with Synthroid DVT: Lovenox Charges/Coding Visit Charges Inpatient E&M: 07553 Init Hosp L2
[2022-06-28] MEDS: 0.9% Saline Lock 10 ML Syringe IV (20:33)
[2022-06-28 20:55] LABS: Troponin-I HS 200 pg/mL (3.0-78.0)
[2022-06-28] MEDS: Metoprolol Tartrate 25 MG Tablet PO (21:37)
[2022-06-28] MEDS: Atorvastatin Calcium 20 MG Tablet PO (21:37)
[2022-06-28] MEDS: Pantoprazole Sodium 40 MG Tablet PO (21:39)
[2022-06-29] VITALS (36 sets, daily range): BP systolic 78–134; BP diastolic 48–92; PULSE 61–131; RESP 15–28; TEMP 36.6–37.9; O2SAT 89–98
[2022-06-29] MEDS: Levothyroxine 25 MCG TABLET PO (05:11)
[2022-06-29 06:53] LABS: Absolute Lymphocyte Count 1.52 X10^3/uL (0.83-4.51); Absolute Neutrophil Count 2.5 X10^3/uL (2.0-7.7); Basophil# 0.01 X10^3/uL; Basophil% 0.2 % (0-1); Eosinophil# 0.03 X10^3/uL; Eosinophils% 0.6 % (0-5); Hematocrit 36.4 % (40-54); Hemoglobin 11.2 g/dL (13.0-16.5); Lymphocyte # 1.52 X10^3/ul (0.83-4.51); Lymphocyte % 30.6 % (19-41); Mean Corp Hgb Conc 30.8 g/dL (32-36); Mean Corpuscular Hgb 30.2 pg (27.0-32.0); Mean Corpuscular Volume 98.1 fL (80-94); Mean Platelet Vol. 12.1 fl (6.2-12.0); Monocyte# 0.87 X10^3/uL; Monocyte% 17.5 % (0-10); NRBC Flagged by Analyzer 0 % (0-5); Neutrophil # 2.48 X10^3/uL (2.7-7.7); Neutrophil % 50.1 % (47-70); Platelet Count 115 K/mm3 (150-450); RBC Distribution Width CV 16.1 % (11.6-14.6); RBC Distribution Width SD 58.4 fl (35.1-43.9); Red Blood Count 3.71 M/mm3 (4.6-6.2)
[2022-06-29 07:18] LABS: Anion Gap 5 (5-15); BUN 33 mg/dL (7-18); BUN/Creat Ratio 22.6 RATIO (10-20); Calcium,Total 8.7 mg/dL (8.5-10.1); Chloride 114 mmol/L (98-107); Creatinine, Serum 1.46 mg/dL (0.70-1.30); EST Glomerular Filtration Rate 49 mL/min (>60); Est Glom Filt Rate - Afr Amer 59 mL/min (>60); Estimated Creatinine Clearance 37.66 ml/min; Glucose 90 mg/dL (74-106); Sodium Level 143 mmol/L (136-145)
[2022-06-29] MEDS: 0.9% Saline Lock 10 ML Syringe IV ×2 (08:57→17:11)
[2022-06-29] MEDS: Digoxin 250 MCG/ML Ampul IV (08:57)
[2022-06-29 09:28] LABS: Troponin-I HS 138 pg/mL (3.0-78.0)
[2022-06-29] MEDS: Enoxaparin 40 MG/0.4 ML Syringe SC (09:30)
[2022-06-29] MEDS: Metoprolol Tartrate 25 MG Tablet PO (09:31)
[2022-06-29] MEDS: Pantoprazole Sodium 40 MG Tablet PO ×2 (09:31→20:17)
[2022-06-29 10:48] LABS: Troponin-I HS 114 pg/mL (3.0-78.0)
--- NOTE | 2022-06-29 11:50 | CASEMGMT ---
RN KERWIN Face to Face with patient for initial transition planning/care coordination assessment. RN CM introduced self and role at [facility]. Patient lying in bed, alert and oriented. Patient willing to participate in assessment and is able to answer all questions appropriately. Care providers, pharmacy, and demographics verified. Patient wishes to discharge home, denies need for home health at this time. Patient states he has no further needs or concerns at this time. CM to follow for discharge planning needs that may arise. PCP: Matheus Specialists: [facility] interventional physician Preferred Pharmacy: [facility] Insurance: [facility] Prescription Benefit: yes Living Will/HPOA: yes, daughter Rayne Huynh LNOK: daughter, son Living Arrangements: Patient lives alone in a single story home with 4 steps and railing to enter the home. Patient states he is independent at home. Transportation: self, daughter, son, grandson DME/HHC: Patient states he has raised toilet, cane, crutches, grab bars, and walker at home. Patient has had [facility]HC in the past. Disposition Plan: Patient to discharge home with family support and follow-up plans in place. Milagros LEVINE, RN, CM
[2022-06-29] MEDS: Ferrous Sulfate 325 MG Tablet 162.5 MG PO ×2 (12:24→20:17)
[2022-06-29 15:20] LABS: Troponin-I HS 90 pg/mL (3.0-78.0)
[2022-06-29] MEDS: Amiodarone 360 MG in Dextrose 5% Viaflo Bag 192.8 ML 33.3 MG CONT INF (17:06)
--- NOTE | 2022-06-29 17:42 | PCM.PN.HOSP ---
Subjective Subjective Patient presented yesterday afternoon with left arm and jaw pain that had been ongoing for several weeks. Also noted some palpitations and racing of his heart which she had had intermittently in the past. Has a history of A. fib. Was found to be in A. fib with RVR in the emergency department. Cardizem drip initiated as well as his oral metoprolol. Blood pressures have been borderline overnight with the Cardizem. Objective Data Objective Data Vital Signs: Vital Signs Temp Pulse Resp BP Pulse Ox O2 Del Method 98 F 122 H 20 H 105/63 95 Room Air 06/29/22 17:06 06/29/22 17:06 06/29/22 17:06 06/29/22 17:06 06/29/22 17:06 06/29/22 17:06 Oxygen Delivery Method Room Air Weight: 75.3 kg Body Mass Index (BMI) 24.5 Intake & Output: Intake and Output for Last 24 Hours 06/27/22 06/28/22 06/29/22 23:59 23:59 23:59 Intake Total 274.01 / 276.84 484.25 / 484.25 Output Total 200 / 200 350 / 350 Balance 74.01 / 76.84 134.25 / 134.25 Lab / Micro Data Result Diagrams: 06/29/22 06:25 06/29/22 06:25 Labs: Laboratory Results - last 24 hr 06/28/22 19:49: Troponin I High Sens 200 H* 06/29/22 06:25: Sodium 143, Potassium 4.0, Chloride 114 H, Carbon Dioxide 24.0, Anion Gap 5, BUN 33 H, Creatinine 1.46 H, Estim Creat Clear Calc 37.66, Est GFR (MDRD) Af Amer 59 L, Est GFR (MDRD) Non-Af 49 L, BUN/Creatinine Ratio 22.6 H, Glucose 90, Calcium 8.7 06/29/22 06:25: WBC 5.0, RBC 3.71 L, Hgb 11.2 L, Hct 36.4 L, MCV 98.1 H, MCH 30.2, MCHC 30.8 L, RDW Std Deviation 58.4 H, RDW Coeff of Radha 16.1 H, Plt Count 115 L, MPV 12.1 H, Immature Gran % (Auto) 1.000 H, Neut % (Auto) 50.1, Lymph % (Auto) 30.6, [place] % (Auto) 17.5 H, Eos % (Auto) 0.6, Baso % (Auto) 0.2, Absolute Neuts (auto) 2.5, Absolute Lymphs (auto) 1.52, Nucleated RBC % 0 06/29/22 08:45: Troponin I High Sens 138 H* 06/29/22 09:55: Troponin I High Sens 114 H 06/29/22 14:30: Troponin I High Sens 90 H Radiography Diagnostic Testing: Radiology Impression Echocardiogram 06/28/22 19:26 Interpretation Summary The study was technically difficult. Left ventricular systolic function is normal. The estimated ejection fraction is 65 %. The left atrium is moderately enlarged. Mild focal mitral valve calcification of the anterior leaflet. Trivial mitral valve insufficiency. Mild tricuspid valve insufficiency. Mild focal aortic valve calcification. Mild (1+) pulmonic valve insufficiency. Right ventricular systolic pressure estimated to be 22 mmHg. Diastolic function is indeterminate. Ordering Physician: Kiet Lopez Performed By: Haile Donohue RCS Physical Exam Const alert, oriented x3, no apparent distress and well nourished Constitutional Narrative: Elderly, white male, sitting up in bed, normal body habitus, appears comfortable nontoxic, very pleasant HEENT head/scalp atraumatic and moist oral mucous membranes HEENT Narrative: Dentition is fair, Mallampati is 2, no thrush Head and Scalp: normocephalic Resp normal respiratory effort, no retractions, no use of accessory muscles and clear to auscultation bilaterally Auscultation: Negative for crackles, rhonchi or wheezes Cardio regular rate, S1 normal heart sound, S2 normal heart sound, no murmurs, no rub, no gallops and no clicks; Negative for regular rhythm Cardio Narrative: Regular rate with irregularly irregular rhythm, heart rate at the time of my evaluation was between 70 and 100 GI normal to inspection, nondistended, normoactive bowel sounds, soft to palpation and non-tender Extremity no clubbing, cyanosis or edema Extremity Narrative: 2+ pedal pulses, pulses are irregular Neuro oriented x3, moves all extremities and no focal motor deficits Speech: speech normal Psych affect normal Psych Narrative: Very pleasant Assessment & Plan Assessment/Plan (1) Atrial fibrillation with RVR: (2) Anemia: (3) Occult blood positive stool: (4) Elevated troponin I level: (5) Thrombocytopenia: (6) SUGAR (acute kidney injury): (7) Creatinine elevation: PLAN: Plan Atrial fibrillation with RVR in the setting of previous atrial fibrillation -Follows with Dr. Sam as an outpatient -Increase home metoprolol -Digoxin x1 dose -Discontinue Cardizem drip -If heart rate remains tachycardic with the above will add amiodarone -Is not anticoagulated at baseline secondary to history of anemia with guaiac positive stool -Would recommend outpatient follow-up for consider addition of anticoagulation depending on blood counts and any GI work-up that will need to be done based on Hemoccult and following his CBC -Echocardiogram done and shows EF of 65% with moderate left atrial enlargement, mild pulmonic valve insufficiency and right ventricular systolic pressure of 22 mmHg Troponin elevation -Likely demand related to tachycardia -Initial troponin was 200 however troponin has now trended down -Echocardiogram without wall motion abnormality -Recommend outpatient cardiology follow-up and consideration of outpatient stress test once more clinically stable History of chronic iron deficiency anemia -Patient reported positive outpatient guaiac stool however current hemoglobin is 11.2 -Baseline hemoglobin from the last 2 years appears to be between 8 and 10 -We will check guaiac here -Monitor closely -Hold anticoagulation for A. fib -If hemoglobin stable and guaiac is positive will refer for outpatient GI follow-up -If hemoglobin unstable will consult GI for scopes -Continue home iron supplementation Serum creatinine elevation -Baseline serum creatinine looks to be between 1 and 1.3 -Creatinine on presentation 1.46 -Reevaluate in a.m. Hypertension/history of AAA/hyperlipidemia -AAA infra-renal repair using 20 x 10 mm x 40 cm Hemashield Vascular Graft 03/04/18 -Continue home metoprolol but increase dose to 50 mg bid ID -Continue home simvastatin -Continue home lisinopril GERD/hernia -Continue home PPI Hypothyroidism -Check TSH especially with RVR -Continue home levothyroxine 25 mcg daily Regular alcohol use -Patient denies drinking daily but states he does drink weekly Thrombocytopenia -This appears to be intermittent -Continue to monitor Suspected COPD -History of tobacco abuse remotely -Would recommend outpatient follow-up at some point for PFTs DVT prophylaxis -SCDs -Enoxaparin 40 mg daily Charges/Coding Visit Charges Inpatient E&M: 84487 Subs Hosp L2
[2022-06-29 19:32] LABS: Absolute Lymphocyte Count 0.69 X10^3/uL (0.83-4.51); Basophil# 0.01 X10^3/uL; Basophil% 0.1 % (0-1); Eosinophil# 0.01 X10^3/uL; Eosinophils% 0.1 % (0-5); Hematocrit 36.5 % (40-54); Hemoglobin 11.4 g/dL (13.0-16.5); Lymphocyte # 0.69 X10^3/ul (0.83-4.51); Lymphocyte % 6.2 % (19-41); Mean Corp Hgb Conc 31.2 g/dL (32-36); Mean Corpuscular Hgb 30.2 pg (27.0-32.0); Mean Corpuscular Volume 96.6 fL (80-94); Mean Platelet Vol. 11.5 fl (6.2-12.0); Monocyte# 1.19 X10^3/uL; Monocyte% 10.7 % (0-10); NRBC Flagged by Analyzer 0 % (0-5); Neutrophil # 9.03 X10^3/uL (2.7-7.7); Neutrophil % 81.5 % (47-70); Platelet Count 107 K/mm3 (150-450); RBC Distribution Width CV 15.9 % (11.6-14.6); Red Blood Count 3.78 M/mm3 (4.6-6.2); White Blood Count 11.1 K/mm3 (4.4-11.0)
[2022-06-29] MEDS: Metoprolol Tartrate 50 MG Tablet PO (20:17)
[2022-06-29] MEDS: Atorvastatin Calcium 20 MG Tablet PO (20:17)
[2022-06-29] MEDS: Menthol/Lanolin/Calamine/Znox 113 GM Tube 1 APPLIC TOPICAL (20:19)
[2022-06-29] MEDS: Acetaminophen 500 MG Tablet 1000 MG PO (20:21)
[2022-06-29] MEDS: Amiodarone 360 MG in Dextrose 5% Viaflo Bag 192.8 ML 16.7 MG CONT INF (23:11)
[2022-06-30] VITALS (19 sets, daily range): BP systolic 83–143; BP diastolic 53–87; PULSE 70–98; RESP 16–22; TEMP 36.7–37.1; O2SAT 92–100
[2022-06-30] MEDS: Levothyroxine 25 MCG TABLET PO (04:57)
[2022-06-30] MEDS: Menthol/Lanolin/Calamine/Znox 113 GM Tube 1 APPLIC TOPICAL (04:58)
[2022-06-30 07:31] LABS: Absolute Lymphocyte Count 1.65 X10^3/uL (0.83-4.51); Absolute Neutrophil Count 7.1 X10^3/uL (2.0-7.7); Basophil# 0.01 X10^3/uL; Basophil% 0.1 % (0-1); Eosinophil# 0.02 X10^3/uL; Eosinophils% 0.2 % (0-5); Hematocrit 36.9 % (40-54); Hemoglobin 11.7 g/dL (13.0-16.5); Lymphocyte # 1.65 X10^3/ul (0.83-4.51); Lymphocyte % 15.2 % (19-41); Mean Corp Hgb Conc 31.7 g/dL (32-36); Mean Corpuscular Volume 97.9 fL (80-94); Mean Platelet Vol. 12.4 fl (6.2-12.0); Monocyte# 2.04 X10^3/uL; Monocyte% 18.7 % (0-10); NRBC Flagged by Analyzer 0 % (0-5); Neutrophil # 7.09 X10^3/uL (2.7-7.7); Neutrophil % 65.1 % (47-70); POSITIVE DIFFERENTIAL YES; Platelet Count 109 K/mm3 (150-450); RBC Distribution Width SD 57.1 fl (35.1-43.9); Red Blood Count 3.77 M/mm3 (4.6-6.2); White Blood Count 10.9 K/mm3 (4.4-11.0)
[2022-06-30 07:50] LABS: Differential Indicated SCAN CRITERIA MET
[2022-06-30 08:10] LABS: Anion Gap 6 (5-15); BUN 24 mg/dL (7-18); BUN/Creat Ratio 19.8 RATIO (10-20); Chloride 112 mmol/L (98-107); Creatinine, Serum 1.21 mg/dL (0.70-1.30); EST Glomerular Filtration Rate 61 mL/min (>60); Est Glom Filt Rate - Afr Amer 74 mL/min (>60); Estimated Creatinine Clearance 45.45 ml/min; Glucose 96 mg/dL (74-106); Magnesium 2.2 mg/dL (1.6-2.6); Phosphorus 2.9 mg/dL (2.5-4.9); Potassium 3.8 mmol/L (3.5-5.1); Sodium Level 143 mmol/L (136-145); Thyroid Stim Hormone (TSH) 1.79 uIU/mL (0.358-3.74)
[2022-06-30 09:36] LABS: Differential Comment SCANNED
[2022-06-30] MEDS: Pantoprazole Sodium 40 MG Tablet PO (09:49)
[2022-06-30] MEDS: Metoprolol Tartrate 50 MG Tablet PO (09:49)
[2022-06-30] MEDS: Lisinopril 10 MG Tablet PO (09:49)
[2022-06-30] MEDS: Enoxaparin 40 MG/0.4 ML Syringe SC (09:50)
[2022-06-30] MEDS: Ferrous Sulfate 325 MG Tablet 162.5 MG PO (11:34)
[2022-06-30] MEDS: Amiodarone 200 MG Tablet PO (11:34)
[2022-06-30] MEDS: 0.9% Saline Lock 10 ML Syringe IV (12:31)
--- NOTE | 2022-06-30 16:31 | DS.PCM_ITS ---
Providers Date of Admission: 06/28/22 Date of Discharge: 06/30/22 Primary Care Physician: Dr. Bryant Jarvis, Reason For Visit: AFIB/CHEST PAIN/GI BLEED Diagnosis Discharge Diagnosis (1) Atrial fibrillation with RVR: Status: Acute Code(s): I48.91 - Unspecified atrial fibrillation (2) Anemia: Status: Acute Code(s): D64.9 - Anemia, unspecified (3) Occult blood positive stool: Status: Acute Code(s): R19.5 - Other fecal abnormalities (4) Elevated troponin I level: Status: Acute Code(s): R77.8 - Other specified abnormalities of plasma proteins (5) Thrombocytopenia: Status: Acute Code(s): D69.6 - Thrombocytopenia, unspecified (6) SUGAR (acute kidney injury): Status: Deleted Code(s): N17.9 - Acute kidney failure, unspecified (7) Creatinine elevation: Status: Acute Code(s): R79.89 - Other specified abnormal findings of blood chemistry Medications at Discharge Home Medications simvastatin 40 mg tablet 40 mg PO DAILY cholesterol 09/22/16 pantoprazole 40 mg tablet,delayed release 40 mg PO BID GERD 04/16/18 levothyroxine 25 mcg tablet 25 mcg PO DAILY thyroid 06/01/21 [id number] acid-vit K-lycop 400 mcg-20 mcg-370 mcg tablet (Men's 50 Plus Multivitamin) 1 tab PO DAILY 06/01/21 vitamin A-vit C-vit E-zinc-Cu tablet 2 tab PO BID 06/01/21 ferrous sulfate 27 mg iron tablet 27 mg PO BID 06/08/21 acetaminophen 325 mg tablet 325 mg PO Q6H PRN Fever Or Pain 02/16/22 lisinopril 10 mg tablet 10 mg PO DAILY blood pressure 06/28/22 amiodarone 200 mg tablet 200 mg PO DAILY #35 tabs 06/30/22 metoprolol tartrate 50 mg tablet 50 mg PO BID #60 tabs 06/30/22 Hospital Course Summary of Care Provided Minutes Spent on Discharge: 37 Hospital Course: Is an 82-year-old white male who presented to an outside facility with left arm and jaw pain as well as palpitations. He indicated it had been going on for several weeks however it seems worse on the day of presentation and had been lasting a bit longer. He also noted palpitations and a racing heart which had been bothering him intermittently. At the outside facility he noted to be in A. fib with RVR and had a slight elevation of his troponin at 230. Our initial troponin here was 200 and he trended down slowly to the point where he was 90 on his last check. He reported that he used to be on Xarelto and aspirin but these were discontinued at the time he had a back surgery. He evidently had a guaiac positive stool at some point at which time he had a polypectomy and hemorrhoids noted. An EGD was done and was unremarkable he reported this was approximately 2 years ago. He reported on presentation that his stools were chronically black because of iron supplementation but he saw his primary care physician a week ago and had stool that was positive for blood and was referred for a colonoscopy but was denied secondary to his hemoglobin being normal. He was admitted to the telemetry floor where he was placed on a Cardizem drip and continued on his home beta-isaac 25 mg twice daily. And echocardiogram was was performed and showed an EF of 65% with no wall motion abnormalities, moderate left atrial enlargement and a right ventricular systolic pressure to be 22 mmHg. On his second day of hospitalization I discontinue the Cardizem drip and increase in his metoprolol however he remained having RVR with rates between 101 20 so we started him on an amiodarone drip. This resulted in decrease in heart rates to anywhere from 60- 90. We discontinue the amiodarone drip and placed him on a loading dose of amiodarone 200 mg p.o. twice daily for 7 days with a transition to 1 tablet at 200 mg daily to follow. A 1 month supply was ordered for the patient and I have asked him to follow-up with his primary senior accounting associate, Dr. Sam, within the next 2 weeks to be reevaluated. We suspect that his troponin elevation was related to his RVR as his echo was unremarkable and his troponin trended down with heart rate improvement. We did check a TSH and was found to be normal. We did not initiate anticoagulation because of his above history. His hemoglobin was stable about his hospital course. We did order a guaiac stool however he did not have a stool production while he was in the hospital. I discussed with him about talking to Dr. Sam with regards to anticoagulation in the future as he is at increased risk for stroke. I did also send him home with an increased do se of his metoprolol from 25 to 50 mg p.o. twice daily. He was discharged home in stable condition on 06/30/2022 and again asked to follow-up with Dr. Sam in 2 weeks and his primary care physician within the next 1 to 2 weeks. Discharge diagnoses: Atrial fibrillation with RVR PAF Troponin elevation without NSTEMI Chronic iron deficiency anemia Serum creatinine elevation-resolved Hypertension History of AAA Hyperlipidemia GERD Hiatal hernia Hypothyroidism Regular alcohol use Thrombocytopenia Suspected COPD Physical Exam Const alert, oriented x3, no apparent distress and well nourished Constitutional Narrative: Elderly, white male, sitting up in bed, normal body habitus, appears comfortable nontoxic, very pleasant, watching television General Appearance: cooperative, comfortable, well kempt and well developed Orientation / Consciousness: awake, oriented to person, oriented to place and oriented to time Exam Limitations: no limitations HEENT normocephalic, head/scalp atraumatic and moist oral mucous membranes HEENT Narrative: Moderately hard of hearing Eyes PERRL, EOMs intact bilaterally and conjunctivae normal Eyes Narrative: No scleral icterus Neck no lymphadenopathy and supple Neck Narrative: Trachea midline, no thyroid enlargement Resp normal respiratory effort, no retractions, no use of accessory muscles and clear to auscultation bilaterally Auscultation: Negative for crackles, rhonchi or wheezes Cardio regular rate, S1 normal heart sound, S2 normal heart sound, no murmurs, no rub, no gallops and no clicks; Negative for regular rhythm Cardio Narrative: Regular rate with irregularly irregular rhythm, heart rate at the time of my evaluation was between 60-90 GI normal to inspection, nondistended, normoactive bowel sounds, soft to palpation and non-tender Extremity no clubbing, cyanosis or edema Extremity Narrative: 2+ pedal pulses, pulses are irregular Skin no rashes or lesions noted, no wounds, skin turgor normal and no jaundice Neuro oriented x3, moves all extremities and no focal motor deficits Speech: speech normal Psych affect normal Psych Narrative: Very pleasant Weight / BMI Weight Weight: 75.3 kg Body Mass Index (BMI) 24.5 ABG / Lab / Microbiology Data Result Diagrams: 06/30/22 05:35 06/30/22 05:35 Laboratory: Laboratory Results - last 24 hr 06/29/22 19:20: WBC 11.1 H, RBC 3.78 L, Hgb 11.4 L, Hct 36.5 L, MCV 96.6 H, MCH 30.2, MCHC 31.2 L, RDW Std Deviation 56.0 H, RDW Coeff of Radha 15.9 H, Plt Count 107 L, MPV 11.5, Immature Gran % (Auto) 1.400 H, Neut % (Auto) 81.5 H, Lymph % (Auto) 6.2 L, Dillon % (Auto) 10.7 H, Eos % (Auto) 0.1, Baso % (Auto) 0.1, Absolute Neuts (auto) 9.0 H, Absolute Lymphs (auto) 0.69 L, Nucleated RBC % 0 06/30/22 05:35: WBC 10.9, RBC 3.77 L, Hgb 11.7 L, Hct 36.9 L, MCV 97.9 H, MCH 31.0, MCHC 31.7 L, RDW Std Deviation 57.1 H, RDW Coeff of Radha 16.0 H, Plt Count 109 L, MPV 12.4 H, Immature Gran % (Auto) 0.700, Neut % (Auto) 65.1, Lymph % (Auto) 15.2 L, Dillon % (Auto) 18.7 H, Eos % (Auto) 0.2, Baso % (Auto) 0.1, Absolute Neuts (auto) 7.1, Absolute Lymphs (auto) 1.65, Nucleated RBC % 0, Differential Comment SCANNED 06/30/22 05:35: Sodium 143, Potassium 3.8, Chloride 112 H, Carbon Dioxide 25.0, Anion Gap 6, BUN 24 H, Creatinine 1.21, Estim Creat Clear Calc 45.45, Est GFR (MDRD) Af Amer 74, Est GFR (MDRD) Non-Af 61, BUN/Creatinine Ratio 19.8, Glucose 96, Calcium 9.0, Phosphorus 2.9, Magnesium 2.2, TSH 1.79 D/C Instructions Discharge Diet: Low fat / Low cholesterol Discharge Activity: Return to Normal Activity Meaningful Use Info Meaningful Use Diagnoses (Choose all that apply): None applicable Discharge Plan Admission Admit Date/Time: 06/28/22 19:17 Primary Reason for Your Visit: Palpitations Attending Provider: Reba Barton Primary Care Provider: Bryant Jarvis Consulting Providers: Kiet Lopez Instructions Additional Instructions / Restrictions: 1. You will take amiodarone 200 mg 1 tablet twice daily for 7 days then decrease dose to 200 mg daily which would be 1 tablet daily 2. Continue to hold aspirin until otherwise instructed 3. Please call Dr. Sam's office early next week to schedule up a hospital follow-up to be seen with either Dr. Sam or one of the nurse practitioners/physicians furniture removalist's assistant to be seen in the next 2 weeks Discharge Orders/Prescriptions Prescriptions: New amiodarone 200 mg Tablet 200 mg PO DAILY Qty: 35 0RF Rx Instructions: Tablet twice daily x7 days then 1 tablet daily metoprolol tartrate 50 mg Tablet 50 mg PO BID Qty: 60 0RF Discontinued metoprolol tartrate 25 mg tablet 25 mg PO BID No Action pantoprazole 40 mg tablet,delayed release (/EC) 40 mg PO BID levothyroxine 25 mcg tablet 25 mcg PO DAILY Label Comments: take 1 tablet by mouth once daily vitamin A-vit C-vit E-zinc-Cu Tablet 2 tab PO BID Men's 50 Plus Multivitamin 400-20-370 mcg tablet 1 tab PO DAILY simvastatin 40 MG tablet 40 mg PO DAILY Label Comments: ferrous sulfate 27 mg iron Tablet 27 mg PO BID acetaminophen 325 mg Tablet 325 mg PO Q6H PRN (Reason: Fever Or Pain) lisinopril 10 mg tablet 10 mg PO DAILY Referrals / Follow Up: Johnnie Sam MD [Med Staff - Active Staff] - Within 2 Weeks (Hospital follow-up for A. fib with rapid ventricular rate) Bryant Jarvis DO [Primary Care Provider] - Within 1 Week Disposition Disposition (needs filled in before D/C Order can be placed): Home, Self Care Charges/Coding Visit Charges Inpatient E&M: 74277 Disch Hosp
== END 2022-06-30 17:53 | disposition home or self-care (01) | DRG 310 ==
PROVIDERS: Admitting Provider Family Medicine; Visit Provider Internal Medicine
DX: I48.0 Paroxysmal atrial fibrillation (principal); D69.6 Thrombocytopenia, unspecified; J44.9 Chronic obstructive pulmonary disease, unspecified; D50.9 Iron deficiency anemia, unspecified; I10 Essential (primary) hypertension; E78.5 Hyperlipidemia, unspecified; E03.9 Hypothyroidism, unspecified; K44.9 Diaphragmatic hernia without obstruction or gangrene; K21.9 Gastro-esophageal reflux disease without esophagitis; R77.8 Other specified abnormalities of plasma proteins; Z79.890 Hormone replacement therapy; Z87.891 Personal history of nicotine dependence; Z79.899 Other long term (current) drug therapy
CPT/HCPCS: 36415; 80048; 83735; 84100; 84443; 84484; 85025; 93005; 93306; A4216

== ENCOUNTER → 2022-07-25 | Outpatient (CLI) | payer MEDICARE, SELFPAY ==
--- NOTE | 2022-07-25 12:22 | STRESSREP ---
Stress Test Report Exercise myocardial perfusion stress test. 82-year-old man with a history of atrial fibrillation and chest pain Stress protocol: Resting EKG demonstrates normal sinus rhythm with a rate of 52 bpm resting blood pressure is 162/82 mmHg. The patient exercised according to the regular Theo protocol for a total duration of 3 minutes and 18 seconds attaining a maximum heart rate of 122 bpm which was 89% of maximum predicted heart rate; the maximum workload was 4.9 metabolic equivalents. At rest there were no ST or T wave changes noted to suggest ischemia and at peak exercise upsloping ST changes only were noted which did not meet the criteria for ischemia. No clinical angina was noted the test was terminated due to the target heart rate being achieved/fatigue. The peak blood pressure was 170/82 mmHg. Rate-pressure product was 15,100. Myocardial perfusion protocol. 11.7 mCi of technetium 99m sestamibi was injected at rest. The patient exercised according to regular Theo protocol for total duration of 3 minutes and 18 seconds and at peak exercise 34.5 mCi of technetium 99m sestamibi was injected stress images were obtained stress and rest images were reconstructed in comparing the short axis vertical long and horizontal long axis. Gated images were also obtained. Perfusion SPECT analysis: Review of the stress images demonstrate normal uptake of tracer noted in all areas of the myocardium. The resting images similarly demonstrate normal uptake of tracer noted in all areas of the myocardium. No areas of reversibility are noted to suggest ischemia no previous infarct was noted. Gated SPECT analysis: The gated ejection fraction is 66%. Conclusion: Normal exercise myocardial perfusion stress test at a low workload Preserved ejection fraction.
== END | disposition home or self-care (01) ==
LOC: CVS 06:36
PROVIDERS: Referring Provider Physician Assistant Medical; Visit Provider Physician Assistant Medical
DX: R07.9 Chest pain, unspecified (principal)
CPT/HCPCS: 78452; 93017; A9500; A4216

== ENCOUNTER → 2022-09-03 | Outpatient (CLI) | payer MEDICARE, SELFPAY ==
--- NOTE | 2022-09-03 13:45 | ART_ITS ---
Reason For Study: Claudication Procedure A bilateral lower extremity continuous wave Doppler with analog waveform analysis,segmental pressures,and ankle brachial indexes without exercise. Left Segmental Pressures Left brachial= 161mmHg. Left posterior tibial artery = 181mmHg. Left dorsalis pedis artery = 169mmHg. The left posterior tibial artery waveforms are triphasic. The left dorsalis pedis waveforms are triphasic. Right Segmental Pressures Right brachial= 163mmHg. Right posterior tibial artery = 135mmHg. Right dorsalis pedis artery = 167mmHg. The right posterior tibial artery waveforms are biphasic. The right dorsalis pedis waveforms are triphasic. Indices The right ankle brachial index by the posterior tibial artery is 0.83. The right ankle brachial index by the dorsalis pedis is 1.02. The left ankle brachial index by the posterior tibial artery is 1.11. The left ankle brachial index by the dorsalis pedis is 1.04. VL/Lower Ext Art Exam w/o Exercis Interpretation Summary Right ROXANA 1.02, normal. Doppler/PVR waveforms of the right leg normal at rest. Left ROXANA 1.11, normal. Doppler/PVR waveforms of the left leg normal at rest. Ordering Physician: Diana Garcia Referring Physician: DIANA GARCIA Performed By: Torsten Abreu RVJagdish
== END | disposition home or self-care (01) ==
LOC: CVS 13:44
PROVIDERS: Visit Provider Physician Assistant Medical
DX: I73.9 Peripheral vascular disease, unspecified (principal); I77.1 Stricture of artery
CPT/HCPCS: 93923

== ENCOUNTER → 2022-09-20 | Outpatient (CLI) | payer MEDICARE, SELFPAY ==
--- NOTE | 2022-09-20 07:39 | AAVD_ITS ---
Reason For Study: iliac stenosis Aorta Measurements Aorta Doppler Measurements Proximal aorta measures1.67 x 1.65cm. in cross- Peak systolic flow velocities within the proximal sectional axis. aorta measure 95.9 cm/sec. Proximal aorta measures1.69cm. in longitudinal Peak systolic flow velocities within the mid aorta axis. measure 37.9 cm/sec. Mid aorta measures1.84 x 1.83cm. in cross- Peak systolic flow velocities within the distal sectional axis. aorta measure 36.1 cm/sec. Mid aorta measures1.95cm. in longitudinal axis. Distal aorta measures1.9 x 2.2cm. in cross- sectional axis. Distal aorta measures1.9cm. in longitudinal axis. Distal Aorta residual sac measures 2.73 x 2.87 x 2.48 cm. Left Iliac Artery Left iliac artery measures .98 x .89 cm. in the cross-sectional axis. Left iliac artery measures .97 cm. in the longitudinal axis. Peak systolic velocity in the left iliac artery measures 301.4 cm/sec. Right Iliac Artery Right iliac artery measures .91 x .91 cm. in the cross-sectional axis. Right iliac artery measures .86 cm. in the longitudinal axis. Peak systolic velocity in the right iliac artery measures 153.4 cm/sec. Procedure Aorta IVC Iliac vasculature or bypass grafts [id number]. The exam was diagnostic. Exam performed in department. VL/Abd Aortic/IVC Duplex scan Interpretation Summary Aortic ectasia. Severe left common iliac stenosis. Ordering Physician: Diana Carlson Performed By: Luis Montero RVT
== END | disposition home or self-care (01) ==
LOC: CVS 07:38
PROVIDERS: Referring Provider Physician Assistant Medical; Visit Provider Physician Assistant Medical
DX: I77.1 Stricture of artery (principal); I10 Essential (primary) hypertension; Z98.890 Other specified postprocedural states
CPT/HCPCS: 93978

== ENCOUNTER → 2023-06-06 | Outpatient (CLI) | payer MEDICARE, SELFPAY ==
--- NOTE | 2023-06-06 17:43 | STRESSREP_ITS ---
Stress Test Report Date: 06/06/2023 Procedure: Pharmacologic stress nuclear imaging study Indications: Chest pain Consent: Per the patient Procedure: The patient underwent pharmacologic (Regadenoson 0.4mg ) evaluation with a peak heart rate of 65 beats per minute (47%predicted maximal heart rate) and a peak blood pressure of 146/100 mmHg. The baseline ECG demonstrated sinus rhythm. The peak pharmacologic ECG demonstrated no ischemic changes. There were no cardiac dysrhythmias pretest, during pharmacologic infusion, or recovery. There was no complaint of chest discomfort during pharmacologic infusion or recovery. The patient was injected with 11.4 millicuries of technetium 99m Cardiolite and subsequently rest SPECT Cardiolite nuclear imaging was obtained in the horizontal long, vertical long, and short axis views. The patient underwent pharmacologic (Regadenoson) evaluation. The patient was injected with 33.9 millicuries of technetium 99m Cardiolite and subsequently stress SPECT Cardiolite nuclear imaging was obtained in the horizontal long, vertical long, and short axis views. A gated Cardiolite study at peak stress was obtained. The examination was stopped secondary to completion of protocol. Rest and stress SPECT Cardiolite nuclear imaging status post realignment, normalization, and attenuation correction demonstrate no fixed or reversible perfusion defects. There is end systolic thickening and brightening. The gated Cardiolite study demonstrates myocardial thickening and inward wall motion. The reported LVEF is 78%. Impression: 1. Pharmacologic (Regadenoson) evaluation 2. Peak pharmacologic ECG with no ischemic changes. 3. There were no cardiac dysrhythmias pretest, during pharmacologic infusion, o r recovery. 5. Rest and stress SPECT Cardiolite nuclear imaging demonstrate relative uniform tracer uptake and myocardial perfusion appearing within normal limits. 6. The gated Cardiolite study reports an LVEF of 78%. This note was generated with Trub[employer]ation software. It may contain incorrect words, spelling, and punctuation that were not noted in checking the note before signing.
== END | disposition home or self-care (01) ==
LOC: CVS 06:48
PROVIDERS: PCP Nurse Practitioner Primary Care; Referring Provider Internal Medicine Cardiovascular Disease; Visit Provider Internal Medicine Cardiovascular Disease
DX: R07.9 Chest pain, unspecified (principal)
CPT/HCPCS: 78452; 93017; A9500; A4216; J2785

== ENCOUNTER → 2023-11-27 | Outpatient (CLI) | payer MEDICARE, SELFPAY ==
--- NOTE | 2023-11-27 08:52 | ART_ITS ---
Reason For Study: Atherosclerosis w/ Claudication Procedure A bilateral lower extremity continuous wave Doppler with analog waveform analysis and ankle brachial indexes. Left Segmental Pressures Left brachial= 174mmHg. Left posterior tibial artery = 165mmHg. Left dorsalis pedis artery = 96mmHg. The left posterior tibial artery waveforms are biphasic. The left dorsalis pedis waveforms are monophasic. Right Segmental Pressures Right brachial= 172mmHg. Right posterior tibial artery = 92mmHg. Right dorsalis pedis artery = 144mmHg. The right posterior tibial artery waveforms are monophasic. The right dorsalis pedis waveforms are biphasic. Indices The right ankle brachial index by the posterior tibial artery is 0.53. The right ankle brachial index by the dorsalis pedis is 0.83. The left ankle brachial index by the posterior tibial artery is 0.95. The left ankle brachial index by the dorsalis pedis is 0.55. VL/Ankle Brachial Index Interpretation Summary Right mild stenosis wiith ROXANA 0.83 and left normall at 0.95. Ordering Physician: Julio Key Referring Physician: Durga Reed Performed By: Torsten Abreu RVT and Student
--- NOTE | 2023-11-27 08:52 | AAVD_ITS ---
Reason For Study: HX AAA repair Aorta Measurements Aorta Doppler Measurements Proximal aorta measures1.90 x 1.70cm. in cross- Peak systolic flow velocities within the proximal sectional axis. aorta measure 85.0 cm/sec. Proximal aorta measures1.74cm. in longitudinal Peak systolic flow velocities within the mid aorta axis. measure 67.4 cm/sec. Mid aorta measures2.05 x 2.11cm. in cross- Peak systolic flow velocities within the distal sectional axis. aorta measure 29.4 cm/sec. Mid aorta measures2.20cm. in longitudinal axis. Distal aorta measures2.41 x 2.25cm. in cross- sectional axis. Distal aorta measures2.43cm. in longitudinal axis. Left Iliac Artery Left iliac artery measures 0.94x 0.89 cm. in the cross-sectional axis. Left iliac artery measures 0.96 cm. in the longitudinal axis. Peak systolic velocity in the left iliac artery measures 190.0 cm/sec. Right Iliac Artery Right iliac artery measures 1.06 x 1.06 cm. in the cross-sectional axis. Right iliac artery measures 0.94 cm. in the longitudinal axis. Peak systolic velocity in the right iliac artery measures 203.9 cm/sec. Procedure Aorta IVC Iliac vasculature or bypass grafts [id number]. The exam was of fair technical quality due to Bowel Gas. Exam performed in department. VL/Abd Aortic/IVC Duplex scan Interpretation Summary No aortoiliac aneurysm or stenosis. Ordering Physician: Julio Key Referring Physician: Durga Reed Performed By: Torsten Abreu RVT and Student
== END | disposition home or self-care (01) ==
PROVIDERS: PCP Nurse Practitioner Primary Care; Referring Provider Surgery Vascular Surgery; Visit Provider Surgery Vascular Surgery
DX: I77.1 Stricture of artery (principal); I71.43 Infrarenal abdominal aortic aneurysm, without rupture
CPT/HCPCS: 93922; 93978

== ENCOUNTER 2024-03-24 06:03 | Day surgery (SDC) | payer MEDICARE, SELFPAY ==
[2024-03-24] VITALS (9 sets, daily range): BP systolic 89–185; BP diastolic 54–81; PULSE 46–54; RESP 12–17; TEMP 36.3–36.6; O2SAT 90–97; BMI 25.4
[2024-03-24] MEDS: Lactated Ringers 1,000 ML 15 ML IV (06:37)
--- NOTE | 2024-03-24 07:06 | PCM.PRE.AN2 ---
ASA Classification* ASA Classification ASA Classification: 3 Assessment & Plan Anesthesia* Anesthesia Assessment Anesthesia Assessment: Discussed sedation and/or anesthesia options, risks, benefits, and alternatives with patient/parents/legal guardian/POA. Questions invited. The patient/parents/legal guardian/POA seems to understand and agrees to proceed with anesthesia plan. Reviewed the physical assessment, medical history, allergy history and patient home medications list prior to surgery/procedure/anesthetic and documented any changes. Performed airway and anesthesia risk assessments. Anesthesia Type Anesthesia Type: MAC (see written pre anesthesia record for full assessment) Anesthesia Focused Assessment* Temperature: 98 F Pulse Rate: 46 Blood Pressure: 185/81 Respiratory Rate: 17 Pulse Ox: 97 Airway Assessment Mouth opens: >3 cm Mallampati Score: II Focused Labs Anesthesia Preop lab: CBC WBC 10.9 K/mm3 (4.4-11.0) 06/30/22 05:35 RBC 3.77 M/mm3 (4.6-6.2) L 06/30/22 05:35 Hgb 11.7 g/dL (13.0-16.5) L 06/30/22 05:35 Hct 36.9 % (40-54) L 06/30/22 05:35 Plt Count 109 K/mm3 (150-450) L 06/30/22 05:35 CHEMISTRY Potassium 3.8 mmol/L (3.5-5.1) 06/30/22 05:35 Sodium 143 mmol/L (136-145) 06/30/22 05:35 Magnesium 2.2 mg/dL (1.6-2.6) 06/30/22 05:35 Phosphorus 2.9 mg/dL (2.5-4.9) 06/30/22 05:35 BUN 24 mg/dL (7-18) H 06/30/22 05:35 Creatinine 1.21 mg/dL (0.70-1.30) 06/30/22 05:35 Glucose 96 mg/dL (74-106) 06/30/22 05:35 TSH 1.79 uIU/mL (0.358-3.74) 06/30/22 05:35 COAG PT 13.8 SECONDS (11.7-14.9) 02/21/22 09:47 Pre-Assessment Diagnosis/Proposed Procedure Planned Operative Procedure(s): COLONOSCOPY/EGD Anesthesia History Anesthesia History - maintenance mgr: Anesthesia History - maintenance mgr Hx Hospitalization No 03/20/24 10:23 Any Problems With Anesthesia No 03/20/24 10:23 Cholinesterase deficiency No 03/20/24 10:23 You/Your Family Experience No 03/20/24 10:23 fever (hyperthermia) with Relationship Recent Exposure to Contagious No 03/24/24 06:34 Disease Does patient have nerve No 03/20/24 10:23 stimulator Patient instructed to have device shut off --Does patient have Pacemaker No 03/24/24 06:34 or ICD? When Was Last Pacemaker Check QUESTION #4 FULL TEXT: You/Your Family Experience fever (hyperthermia) with Anesthesia Last Oral Intake Last Oral intake: Last Oral Intake NPO since 05:00 03/24/24 06:34 Meds taken in AM with sips of Yes 03/24/24 06:34 water? Meds patient instructed to take am of surgery PONV PONV - maintenance mgr: PONV - maintenance mgr Female No 03/20/24 10:23 HX of Motion Sickness No 03/20/24 10:23 HX of N/V After Surgery Yes 03/20/24 10:23 Non-Smoker Yes 03/20/24 10:23 Duration of Surgery greater No 03/20/24 10:23 than 60 minutes Number of Risk Factors 2 03/20/24 10:23 PONV Score Moderate Risk 03/20/24 10:23 Height & Weight Height & Weight: Anesthesia: Height & Weight Height 5 ft 9 in 03/24/24 06:34 Weight: 78 kg 03/24/24 06:34 Body Mass Index (BMI) 25.4 03/24/24 06:34 Respiratory Assessment Respiratory Assessment - maintenance mgr: Respiratory Tract Infection Hx - maintenance mgr Hx Respiratory Tract Infection No 03/20/24 10:23 STOP Sleep Apnea STOP Sleep Apnea - maintenance mgr: STOP Sleep Apnea - maintenance mgr Hx Hypertension Yes: per pt, controlled on 03/20/24 10:23 meds Hx Sleep Apnea No 03/20/24 10:23 CPAP BIPAP Do you snore loudly (louder No 03/20/24 10:23 than talking or can be heard Do you often feel tired/ No 03/20/24 10:23 fatigued/ sleepy during daytime? Has anyone observed you stop No 03/20/24 10:23 breathing during sleep? STOP Results Negative 03/20/24 10:23 QUESTION #5 FULL TEXT : Do you snore loudly (louder than talking or can be heard through closed doors)? Tobacco Use History Tobacco Use History - maintenance mgr: Tobacco Use History - maintenance mgr Tobacco Use Smoking Status Former smoker 03/20/24 10:23 Hx Tobacco Use Yes: chewing tobacco 03/20/24 10:23 Years Smoking Packs Smoked per Day Smoking Cessation Date was Yes - quit smoking within 15 03/20/24 10:23 within the last 15 years years Hx Smoking Cessation Date 10/30/19 03/20/24 10:23 Hx Smoking Cessation Counseling Hematologic Medial History Hematologic Hx - maintenance mgr: Hematologic Medical Hx - surgical services asst Hx of Blood Transfusion Yes 03/20/24 10:23 Hx of Transfusion in last 3 No 03/20/24 10:23 Months Date of Last Transfusion (if within last 3 months) Ever experience any problems No 03/20/24 10:23 with transfusion(s)? Specify any problems Hx of Preganancy in last 3 N/A 03/20/24 10:23 Months Nurse Filling Out Transfusion VCHRISTIN 03/20/24 10:23 & Questions: Date: 03/20/24 03/20/24 10:23 Time: 10:25 03/20/24 10:23 Patient unable to answer at this time (ie. confused, unrespo /Reproduction History /Reproductive History - maintenance mgr: /Reproductive Hx- maintenance mgr Hx Now Gestational Age (in weeks): EDC: Hx Hx Para Hx Section SAB Active Medications Active Medications: Current Medications Generic Name Dose Route Start Last Admin Trade Name Freq PRN Reason Stop Dose Admin Lactated Ringer's 1,000 mls @ 15 mls/hr 03/24/24 06:30 03/24/24 06:37 IV 15 mls/hr .Q48H CELINA Administration PFSH Medical History History of pain when walking History of stress test Iron deficiency anemia Chronic kidney disease Pancytopenia Thrombocytopenia History of hiatal hernia Gastric reflux Former smoker History of atrial fibrillation Chewing tobacco nicotine dependence Prostate disease Wears hearing aid Wears glasses Wears dentures Alcohol use Thyroid disease Ambulates with cane Arthritis History of anemia Easy bruising Excessive bleeding Injury of head and neck Difficulty swallowing Shortness of breath on exertion History of edema Leg cramps History of echocardiogram Cardiology follow-up encounter Occult blood positive stool Anemia Acute kidney injury Essential (primary) hypertension Thrombocytopenia Paroxysmal atrial fibrillation GI bleed Anemia Bowel and bladder incontinence Spinal stenosis of 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) Hyperlipidemia Home Medications ?Medication ?Instructions ?Recorded ?Last Taken ?Type pantoprazole 40 mg tablet,delayed 40 mg PO BID GERD 04/16/18 03/21/24 History release levothyroxine 25 mcg tablet 25 mcg PO DAILY thyroid 06/01/21 03/21/24 History ldiksgydtvve-cyl-xmkhj acid-vit 1 tab PO DAILY 06/01/21 03/21/24 History K-lycop 400 mcg-20 mcg-370 mcg tablet (Men's 50 Plus Multivitamin) ferrous sulfate 27 mg iron tablet 27 mg PO BID 06/08/21 03/21/24 History acetaminophen 325 mg tablet 325 mg PO Q6H PRN Fever Or Pain 02/16/22 03/21/24 History amiodarone 200 mg tablet 200 mg PO DAILY #90 tabs 07/16/23 03/24/24 Rx metoprolol tartrate 25 mg tablet 25 mg PO BID #180 tabs 07/16/23 03/24/24 Rx lisinopril 20 mg tablet 20 mg PO BID #180 tabs 07/24/23 03/24/24 Rx atorvastatin 10 mg tablet 10 mg PO QHS 02/19/24 03/21/24 History calcium carbonate 500 mg PO DAILY 02/19/24 03/21/24 History fluticasone propionate 50 1 spray intranasal DAILY 02/20/24 03/21/24 History mcg/actuation nasal spray,suspension vit C 250 mg-vit E 90 mg-zinc 40 1 tab PO BID 03/20/24 03/21/24 History mg-copper 1 kb-aiawrt-otyixt capsule (PreserVision AREDS-2) Allergy/AdvReac Type Severity Reaction Status Date / Time No Known Allergies Allergy Verified 03/24/24 06:32 Family History Mother Cancer Father Alcohol abuse Brother Heart disease Surgical History History of ankle surgery History of knee surgery History of neck surgery History of colonoscopy History of appendectomy History of esophagogastroduodenoscopy (EGD) History of radiofrequency ablation procedure for cardiac arrhythmia History of AAA (abdominal aortic aneurysm) repair (03/04/18) Social History current occupational status: retired Smoking Status: Former smoker quit date: 07/01/06 Smokeless tobacco user: snuff and other alcohol intake: never caffeine: No additional social history: 2 cans of snuff per week Review of Systems (Anesthesia) ROS Narrative System reviewed and no additional complaints, except as documented.
--- NOTE | 2024-03-24 07:18 | PCM.HP.BLA ---
History and Physical Date of Admission: 03/24/24 Intake Vital Signs 02/19/2413:22 02/26/2413:40 Height 5 ft 9 in 5 ft 8 in Weight: 172 lb 4 oz 174 lb BMI 25.4 26.4 BP 156/77 H 174/78 H Blood Pressure Location Lt brachial Rt brachial Position Sitting Sitting Respiration 16 18 Pulse 49 L 50 L Pulse Source Monitor Monitor Temp 98.6 F Pulse Oximetry (%) 94 98 Oxygen Delivery Method room air room air Intake Visit Reasons: Blood In Stool Chief Complaint: Anemia Blow Molding Machine Tender Required: No Accompanied by: Is patient in pain?: No Allergies No Known Allergies Allergy (Verified 02/27/24 13:41) Medications ?Medication ?Instructions ?Recorded ?Confirmed ?Type pantoprazole 40 mg tablet,delayed 40 mg PO BID GERD 04/16/18 02/27/24 History release levothyroxine 25 mcg tablet 25 mcg PO DAILY thyroid 06/01/21 02/27/24 History uaobpvinmwbt-qhv-qpfzz acid-vit 1 tab PO DAILY 06/01/21 02/27/24 History K-lycop 400 mcg-20 mcg-370 mcg tablet (Men's 50 Plus Multivitamin) ferrous sulfate 27 mg iron tablet 27 mg PO BID 06/08/21 02/27/24 History acetaminophen 325 mg tablet 325 mg PO Q6H PRN Fever Or Pain 02/16/22 02/27/24 History amiodarone 200 mg tablet 200 mg PO DAILY #90 tabs 07/16/23 02/27/24 Rx metoprolol tartrate 25 mg tablet 25 mg PO BID #180 tabs 07/16/23 02/27/24 Rx lisinopril 20 mg tablet 20 mg PO BID #180 tabs 07/24/23 02/27/24 Rx atorvastatin 10 mg tablet 10 mg PO QHS 02/19/24 02/27/24 History calcium carbonate 500 mg PO DAILY 02/19/24 02/27/24 History fluticasone propionate 50 1 spray intranasal DAILY 02/20/24 02/27/24 History mcg/actuation nasal spray,suspension prednisolone acetate (PF) 1 % eye 1 drp ophthalmic (eye) BID 02/20/24 02/27/24 History drops,suspension Have you fallen in the past year?: No PFSH Medical History Iron deficiency anemia Chronic kidney disease Pancytopenia Thrombocytopenia History of hiatal hernia Gastric reflux Former smoker History of atrial fibrillation Chewing tobacco nicotine dependence Prostate disease Wears hearing aid Wears glasses Wears dentures Alcohol use Thyroid disease Ambulates with cane Arthritis History of anemia Easy bruising Excessive bleeding Injury of head and neck Difficulty swallowing Shortness of breath on exertion History of edema Leg cramps History of echocardiogram Cardiology follow-up encounter Occult blood positive stool Anemia Acute kidney injury Essential (primary) hypertension Thrombocytopenia Paroxysmal atrial fibrillation GI bleed Anemia Bowel and bladder incontinence Spinal stenosis of 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) Hyperlipidemia Surgical History History of knee surgery History of neck surgery History of colonoscopy History of appendectomy History of esophagogastroduodenoscopy (EGD) History of radiofrequency ablation procedure for cardiac arrhythmia History of AAA (abdominal aortic aneurysm) repair (03/04/18) Family History Mother CancerFather Alcohol abuseBrother Heart disease Social History current occupational status: retired Smoking Status: Former smoker quit date: 07/01/06 Smokeless tobacco user: snuff and other alcohol intake: never caffeine: No additional social history: 2 cans of snuff per week HPI HPI HPI: Patient is an 83-year-old male here with blood in his stool and anemia. The patient had EGD and colonoscopy in 2019 which were normal. The patient does note occasional blood in the stool but he says this is usually after eating nuts. He denies abdominal pain or fevers or chills or large amounts of gross blood. ROS General General: No weight change, appetite, fatigue, colon cancer, breast cancer or weakness HEENT HEENT: No difficulty swallowing, eye injury, eye surgery, swollen glands or hoarseness Endo Endocrine: No thyroid disease, diabetes mellitus, thyroid cancer, Hair loss, heat intolerance or cold intolerance Skin Skin: No rash or changing moles Breast Breast: No left breast lump, right breast lump, nipple discharge, breast pain, abnormal mammogram, abnormal US or breast enlargement Musc Musculoskeletal: Yes arthritis; No back problems, rheumatoid arthritis, gout or joint pain Cardio Cardiovascular: Yes murmur, heart disease, atrial fibrillation and high blood pressure; No pacemaker, heart attack, heart stent, palpitations, shortness of breat with exertion or chest pain Psych Psychiatric: No depression, anxiety or hearing voices Resp Respiratory: No shortness of breath, No sleep apnea, No cough, No COPD, No asthma, No emphysema and No wheezing Gastro Gastrointestinal: No abdominal pain, No nausea or vomiting, No diarrhea, No constipation, No blood in stool, Yes acid reflux, Yes hemorrhoids, No ulcers, No gallbladder problem and No black,tarry stools Nirmal Hematologic: No blood thinners, No blood disorders, No bleeding, No anemia and No blood clots Neuro Neurologic: No system reviewed and no additional complaints, except as documented, No as per HPI, No abnormal gait, No abnormal hearing, No abnormal movements, No abnormal speech, No behavioral changes, No burning sensations, No confusion, No convulsions, No disequilibrium, No dizziness, No localized weakness, No frequent falls, No headache(s), No lack of coordination, No loss of vision, No memory loss, No numbness, No other visual disturbances, No radicular pain, No restless legs, No sensory deficit, No syncope, No tingling, No tremor(s), No weakness and No other Exam Const General: cooperative Orientation: alert and oriented x3 HENMT Head: normal to inspection Neck Neck: normal visual inspection and full ROM Chest Chest palpation & inspection: normal inspection of the chest Resp Effort & Inspection: normal respiratory effort Auscultation: clear to auscultation bilaterally Cardio Rate: regular rate Rhythm: regular rhythm GI Inspection: non-distended Palpation: soft and nontender Skin General: no rashes or lesions noted Neuro General: patient alert and patient oriented x3 Extrem General: full ROM Psych Appearance: grossly normal Mental Status: mental status grossly normal Assessment and Plan Assessment and Plan (1) Pancytopenia: Status: Chronic Plan: Patient has pancytopenia including iron deficiency anemia. I discussed performing EGD and colonoscopy for him to evaluate. I explained endoscopy in detail to the patient. I explained the risks including but not limited to stroke or heart attack with anesthesia, perforation of the GI tract, bleeding, infection. I explained that any of these could necessitate further emergency surgery. The patient understands and all questions were answered sufficiently. The patient wishes to proceed with procedure. Otto Velazquez MD Pager: [facility] [address] [place] [address], [address] [place] [address] Office: I have examined the patient and the H&P has been reviewed. There are no clinical changes since date of exam.
--- NOTE | 2024-03-24 08:19 | OP.EGD_ITS ---
Patient Name: Jax York Procedure Date: 03/24/2024 7:55 AM Date of : 1940 Age: 83 Procedure: Upper GI endoscopy Indications: Iron deficiency anemia Providers: Otto Velazquez MD Referring MD: Melchor Hernandez Medicines: Propofol per Anesthesia Patient Profile: This is an 83 year old male. Refer to note in patient chart for documentation of history and physical. Complications: No immediate complications. Procedure: Pre-Anesthesia Assessment: - Prior to the procedure, a History and Physical was performed, and patient medications and allergies were reviewed. The patient's tolerance of previous anesthesia was also reviewed. The risks and benefits of the procedure and the sedation options and risks were discussed with the patient. All questions were answered, and informed consent was obtained. Prior Anticoagulants: The patient has taken no anticoagulant or antiplatelet agents. After reviewing the risks and benefits, the patient was deemed in satisfactory condition to undergo the procedure. After obtaining informed consent, the endoscope was passed under direct vision. Throughout the procedure, the patient's blood pressure, pulse, and oxygen saturations were monitored continuously. The Colonoscope was introduced through the mouth, and advanced to the fourth part of duodenum. The upper GI endoscopy was accomplished without difficulty. The patient tolerated the procedure well. Scope In: 8:01:11 AM Scope Out: 8:03:23 AM Total Procedure Duration Time 0 hours 2 minutes 12 seconds Findings: The esophagus was normal. The stomach was normal. The examined duodenum was normal. Impression: - Normal esophagus. - Normal stomach. - Normal examined duodenum. - No specimens collected. Recommendation: - Discharge patient to home. - Resume previous diet. - Continue present medications. Procedure Code(s): --- Professional --- 16389, Esophagogastroduodenoscopy, flexible, transoral; diagnostic, including collection of specimen(s) by brushing or washing, when performed (separate procedure) Diagnosis Code(s): --- Professional --- D50.9, Iron deficiency anemia, unspecified CPT copyright 2021 [employer]. All rights reserved. The codes documented in this report are preliminary and upon drafting detailer review may be revised to meet current compliance requirements. Otto Velazquez MD 03/24/2024 8:18:44 AM This report has been signed electronically. Number of Addenda: 0 Note Initiated On: 03/24/2024 7:55 AM
--- NOTE | 2024-03-24 08:19 | OP.CCLET_ITS ---
03/24/2024 Melchor Hernandez Re : Upper GI endoscopy procedure for Jax Duron Derek This procedure was performed on Sunday, March 24, 2024. My impressions and recommendations are as follows: Impressions : - Normal esophagus. - Normal stomach. - Normal examined duodenum. - No specimens collected. Recommendations : - Discharge patient to home. - Resume previous diet. - Continue present medications. My findings are described in the full procedure note, which is enclosed. If I can be of further assistance, please feel free to contact me at Doctor phone number(s): , Work: . Sincerely, Otto Velazquez MD 03/24/2024 8:18:44 AM This report has been signed electronically.
--- NOTE | 2024-03-24 08:20 | OP.COLON_ITS ---
Patient Name: Jax York Procedure Date: 03/24/2024 8:03 AM Date of : 1940 Age: 83 Procedure: Colonoscopy Indications: Iron deficiency anemia Providers: Otto Velazquez MD Referring MD: Melchor Hernandez Medicines: Propofol per Anesthesia Patient Profile: This is an 83 year old male. Refer to note in patient chart for documentation of history and physical. Last Colonoscopy: 5 years ago. Complications: No immediate complications. Procedure: Pre-Anesthesia Assessment: - Prior to the procedure, a History and Physical was performed, and patient medications and allergies were reviewed. The patient's tolerance of previous anesthesia was also reviewed. The risks and benefits of the procedure and the sedation options and risks were discussed with the patient. All questions were answered, and informed consent was obtained. Prior Anticoagulants: The patient has taken no anticoagulant or antiplatelet agents. After reviewing the risks and benefits, the patient was deemed in satisfactory condition to undergo the procedure. - Prior to the procedure, a History and Physical was performed, and patient medications and allergies were reviewed. The patient's tolerance of previous anesthesia was also reviewed. The risks and benefits of the procedure and the sedation options and risks were discussed with the patient. All questions were answered, and informed consent was obtained. Prior Anticoagulants: The patient has taken no anticoagulant or antiplatelet agents. After reviewing the risks and benefits, the patient was deemed in satisfactory condition to undergo the procedure. After I obtained informed consent, the scope was passed under direct vision. Throughout the procedure, the patient's blood pressure, pulse, and oxygen saturations were monitored continuously. The Colonoscope was introduced through the anus and advanced to the cecum, identified by appendiceal orifice and ileocecal valve. The colonoscopy was performed without difficulty. The patient tolerated the procedure well. The quality of the bowel preparation was good. The ileocecal valve, appendiceal orifice, and rectum were photographed. Scope In: 8:04:29 AM Scope Withdrawal Time 0 hours 5 minutes 28 seconds Scope Out: 8:14:09 AM Total Procedure Duration Time 0 hours 9 minutes 40 seconds Findings: The entire examined colon appeared normal on direct and retroflexion views. Impression: - The entire examined colon is normal on direct and retroflexion views. - No specimens collected. Recommendation: - Discharge patient to home. - Resume previous diet. - Continue present medications. - Repeat colonoscopy is not recommended due to current age (66 years or older) for screening purposes. Procedure Code(s): --- Professional --- 91429, Colonoscopy, flexible; diagnostic, including collection of specimen(s) by brushing or washing, when performed (separate procedure) Diagnosis Code(s): --- Professional --- D50.9, Iron deficiency anemia, unspecified CPT copyright 2021 [employer]. All rights reserved. The codes documented in this report are preliminary and upon central scheduler review may be revised to meet current compliance requirements. Otto Velazquez MD 03/24/2024 8:19:57 AM This report has been signed electronically. Number of Addenda: 0 Note Initiated On: 03/24/2024 8:03 AM
--- NOTE | 2024-03-24 08:20 | OP.CCLET_ITS ---
03/24/2024 Melchor Hernandez Re : Colonoscopy procedure for Jax Duron Derek This procedure was performed on Sunday, March 24, 2024. My impressions and recommendations are as follows: Impressions : - The entire examined colon is normal on direct and retroflexion views. - No specimens collected. Recommendations : - Discharge patient to home. - Resume previous diet. - Continue present medications. - Repeat colonoscopy is not recommended due to current age (66 years or older) for screening purposes. My findings are described in the full procedure note, which is enclosed. If I can be of further assistance, please feel free to contact me at Doctor phone number(s): , Work: . Sincerely, Otto Velazquez MD 03/24/2024 8:19:57 AM This report has been signed electronically.
--- NOTE | 2024-03-24 08:22 | PCM.POST.ANE ---
Anesthesia: Postop Eval I Current Vital Signs Temperature: 97.3 F Pulse Rate: 54 Blood Pressure: 95/55 Respiratory Rate: 12 Pulse Ox: 95 Oxygen Delivery Method: Room Air Assessment Airway patent: Yes Spontaneous unlabored respirations: Yes Mental status: Asleep nausea: No Vomiting: No Anesthesia Complication: No Fluid Hydration Crystalloid volume administer (ml): 800 Total IV fluid infused: 800 Progress Note Anesthesia document: Postop Eval 1 completed: Yes
--- NOTE | 2024-03-24 08:28 | PCM.POSTANE2 ---
Anesthesia Postop Eval I Sum Postop Eval Completion status Anesthesia document: Postop Eval 1 completed: Yes Anesthesia Postop Eval I Summary Anesthesia Postop Eval I Summary: Anesthesia Postop Eval I: Assessment Summary Airway patent Yes 03/24/24 08:22 [email or web address] Spontaneous unlabored Yes 03/24/24 08:22 [email or web address] respirations Mental status Asleep 03/24/24 08:22 [email or web address] nausea No 03/24/24 08:22 [email or web address] Vomiting No 03/24/24 08:22 [email or web address] Anesthesia Postop Eval I: Fluid Summary Crystalloid volume administer 800 03/24/24 08:22 [email or web address] (ml) Colloids volume administered ( ml) Blood Product volume administered (ml) Total IV fluid infused 800 03/24/24 08:22 [email or web address] Anesthesia Postop Eval I: Summary Notes Anesthesia Complication No 03/24/24 08:22 [email or web address] Anesthesia Complication Comment: Post-operative progress note Anesthesia: Postop Eval II Evaluation Mental status: Awake Pain Level: 0 nausea: No Vomiting: No
== END 2024-03-24 09:15 | disposition home or self-care (01) ==
LOC: EN 06:05 → AC 06:07
PROVIDERS: PCP Nurse Practitioner Primary Care; Referring Provider Nurse Practitioner Primary Care; Visit Provider Surgery
PROC: 0DJD8ZZ Inspection of Lower Intestinal Tract, Via Natural or Artificial Opening Endoscopic (ICD-10-PCS; CPT 45378; principal; 2024-03-24 07:25)
DX: K92.1 Melena (principal); D61.818 Other pancytopenia; I48.0 Paroxysmal atrial fibrillation; Z87.891 Personal history of nicotine dependence; E78.5 Hyperlipidemia, unspecified; N18.9 Chronic kidney disease, unspecified; D50.9 Iron deficiency anemia, unspecified; I12.9 Hypertensive chronic kidney disease with stage 1 through stage 4 chronic kidney disease, or unspecified chronic kidney disease; K21.9 Gastro-esophageal reflux disease without esophagitis; Z79.899 Other long term (current) drug therapy; Z79.890 Hormone replacement therapy
CPT/HCPCS: G0121; 43235; J7120; J2405